=== PATIENT | female | born 1995 | race Caucasian/White ===

== ENCOUNTER 2019-11-13 17:31 | Emergency (ER) | payer BC, SELFPAY ==
[2019-11-13 17:56] VITALS: BP 124/90; PULSE 111; RESP 14; TEMP 36.9; O2SAT 99; BMI 28.3
[2019-11-13 18:10] LABS: Apearance,Urine Clear (Clear); Color,Urine Yellow (Yellow)
[2019-11-13 18:11] LABS: PH,Urine 5.5 (5.0-8.5); Specific Gravity, Urine <= 1.005 (1.005-1.030)
[2019-11-13 18:12] LABS: Bilirubin,Urine Negative (Negative); Blood, Urine Negative (Negative); Glucose,Urine (UA) Negative (Negative); Ketones,Urine 15 (Negative); Protein,Urine Negative (Negative); Urobilinogen,Urine 0.2 EU/dl (0.2)
[2019-11-13 18:13] LABS: UTC Leukocyte Esterase,Urine Negative (Negative); UTC Nitrate,Urine Negative (Negative)
[2019-11-13 18:21] VITALS: BP 139/92; PULSE 112; RESP 16; TEMP 36.9; O2SAT 100; BMI 28.3
[2019-11-13 18:36] LABS: Basophils % 0.3 % (0.1-2.0); Eosinophils # 0.1 K/mm3 (0.0-0.4); Eosinophils % 1.2 % (0.1-12.0); Hematocrit 38.2 % (37.0-47.0); Hemoglobin 13.5 g/dL (12.2-16.2); Lymphocytes # 2.7 K/mm3 (0.7-4.5); Lymphocytes % 27.1 % (10-50); Mean Corpuscular HGB Conc 35.3 g/dL (31.8-35.4); Mean Corpuscular Hemoglobin 34.2 pg (27.0-31.2); Mean Corpuscular Volume 96.9 fl (81-99); Mean Platelet Volume 7.1 fl (7.4-10.4); Monocytes # 0.5 K/mm3 (0.1-1.0); Monocytes % 4.6 % (1.7-9.3); Neutrophils # 6.7 K/mm3 (1.8-7.8); Neutrophils % 66.8 % (37.0-80.0); Platelet Count 255 K/mm3 (142-424); Red Blood Count 3.94 M/mm3 (4.20-5.40); Red Cell Distribution Width 12.4 % (11.5-17.5); White Blood Count 10.1 K/mm3 (4.8-10.8)
[2019-11-13 18:38] LABS: Chloride 102 mmol/L (98-107); Potassium 4.3 mmoL/L (3.5-5.1); Sodium 138 mmol/L (136-145)
[2019-11-13 18:38] LABS: Microscopic, Urine URINE MICROSCOPIC (MICROSCOPIC)
[2019-11-13 18:40] LABS: Alanine Aminotransferase 19 U/L (12-78); Aspartate Amino Transferase 27 U/L (14-36); Blood Urea Nitrogen 14 mg/dl (7-17); Creatinine Clearance Estimated 123 mL/min (50-200); Estimated Glomerular Filt Rate 87 ml/min (>60); GFR (African American) 106 ML/MIN (>60)
[2019-11-13 18:41] LABS: Albumin Level 4.4 g/dl (3.5-5.0); Albumin/Globulin Ratio 1.3 (1.1-1.8); Alkaline Phosphatase 63 U/L (38-126); Anion Gap 15.3 mEq/L (5-15); Bilirubin,Total 0.3 mg/dl (0.2-1.3); Calcium 9.8 mg/dl (8.4-10.2); Carbon Dioxide 25 mmol/L (22.0-30.0); Globulin 3.3 g/dL (1.3-3.2); Glucose 79 mg/dl (74-100); Total Protein,Serum 7.7 g/dl (6.3-8.2)
--- NOTE | 2019-11-13 18:52 | HMH.EDGENADL ---
ED Disposition Clinical Impression: Chronic abdominal pain Disposition: Home, Self-Care Condition on Discharge: Good Instructions: DI for Abdominal Pain-Adult Additional Instructions: Follow-up with your primary care provider for further evaluation. Referrals: Lucy Rayo MD [Primary Care Provider] - - Critical Care Critical Care Time: No Attestation: On 11/13/19, the high probability of a clinically significant, sudden or life threatening deterioration of the following system(s) required my full and direct attention, intervention and personal management. The time I documented below is in addition to time spent performing reported procedures but includes the following listed in this critical care notation. Medical Decision Making - Jose Roberto Inquiry Pt receiving controlled substance: No Vital Signs: 11/13/19 17:56 11/13/19 18:21 Temperature 98.4 F 98.4 F Temperature Source Oral Oral Pulse Rate [Right Brachial] 111 H 112 H Respiratory Rate 14 16 Blood Pressure [Right Arm] 124/90 139/92 H Blood Pressure Mean [Right Arm] 101 107 Blood Pressure Source [Right Arm] Automatic Cuff Automatic Cuff Blood Pressure Position [Right Arm] Sitting Sitting 02 Sat by Pulse Oximetry 99 100 Oxygen Delivery Method Room Air Room Air - Lab Data Lab Results 11/13/19 17:50: Urine Color Yellow, Urine Appearance Clear, Urine pH 6.0, Ur Specific [place] <= 1.005, Urine Protein Negative, Urine Glucose (UA) Negative, Urine Ketones Trace, Urine Blood Negative, Urine Nitrate Negative, Urine Bilirubin Negative, Urine Urobilinogen 0.2, Ur Leukocyte Esterase Negative 11/13/19 17:50: Urine HCG, Qual Negative 11/13/19 18:09: Urine Color Yellow, Urine Appearance Clear, Urine pH 5.5, Ur Specific [place] <= 1.005, Urine Protein Negative, Urine Glucose (UA) Negative, Urine Ketones 15, Urine Blood Negative, Urine Nitrate Negative, Urine Bilirubin Negative, Urine Urobilinogen 0.2, Ur Leukocyte Esterase Negative 11/13/19 18:25: WBC 10.1, RBC 3.94 L, Hgb 13.5, Hct 38.2, MCV 96.9, MCH 34.2 H, MCHC 35.3, RDW 12.4, Plt Count 255, MPV 7.1 L, Neut % (Auto) 66.8, Lymph % (Auto) 27.1, [place] % (Auto) 4.6, Eos % (Auto) 1.2, Baso % (Auto) 0.3, Neut # (Auto) 6.7, Lymph # (Auto) 2.7, [place] # (Auto) 0.5, Eos # (Auto) 0.1, Baso # (Auto) 0.0 11/13/19 18:25: Sodium 138, Potassium 4.3, Chloride 102, Carbon Dioxide 25, Anion Gap 15.3 H, BUN 14, Creatinine 0.80, Estimated Creat Clear 123, Estimated GFR 87, Est GFR ( Amer) 106, Glucose 79, Calcium 9.8, Total Bilirubin 0.3, AST 27, ALT 19, Alkaline Phosphatase 63, Total Protein 7.7, Albumin 4.4, Globulin 3.3 H, Albumin/Globulin Ratio 1.3 11/13/19 18:29: Tst Clinic Cancelled Result diagrams: 11/13/19 18:25 11/13/19 18:25 Orders (Tests/Meds): ED MEDICATIONS Discontinued Medications Generic Name Dose Route Start Last Admin Trade Name Pattie PRN Reason Stop Dose Admin Ioversol 75 ml 11/13/19 19:19 11/13/19 19:20 Rad-Optiray 350 100ml Vial IV 11/13/19 19:20 75 ml ONCE ONE Administration Protocol Sodium Chloride 10 ml 11/13/19 19:19 11/13/19 19:20 Rad-Saline Flush 10ml Syringe IV 11/13/19 19:20 10 ml ONCE ONE Administration ORDERS Category Date Time Status CT abdomen pelvis w con Stat Cat Scan 11/13/19 18:52 Taken Urinalysis and Microscopic Stat Lab 11/13/19 17:50 Results Urine Culture Routine Micro 11/13/19 17:50 Received - CT Data CT Scan: Abdomen, Pelvis Time Received: 19:35 ([facility] fax) ED CT Reviewed: Yes: I have viewed the radiologist's interpretation Findings Narrative: No acute findings General Adult HPI - General Chief complaint: PAIN Stated complaint: Pain R side for 1 mo Time Seen by Provider: 11/13/19 18:44 Mode of Arrival: Ambulatory Limitations: No Limitations Description of Symptoms (Recalled from ER Triage Doc. by RN): Pt reports R lower pelvic pain that has been intermittent since February of last year. Pt reports pain has been con
--- NOTE | 2019-11-13 18:52 | CT_ITS ---
PROCEDURE: CT ABDOMEN PELVIS W CON CLINICAL INDICATION: RLQ pain Persistent right lower quadrant pain COMPARISON: No exams were available for comparison TECHNIQUE: IV Contrast: 75ML OPTIRAY 350 Oral Contrast None Axial images obtained with sagittal and coronal reformats. All CT scans at the facility use one or more dose reduction, viz: automated exposure control, ma/kV adjustment per patient size (including targeted exams where dose is matched to indication, i.e. head), or iterative reconstruction technique. FINDINGS: LOWER THORAX: No acute finding ABDOMEN & PELVIS: The liver, spleen, adrenal glands, pancreas, gallbladder, and kidneys have an unremarkable appearance. No intestinal obstruction or free air. No evidence of appendicitis or diverticulitis. No pelvic mass or abnormal fluid collection. No acute bony findings. Few small inguinal lymph nodes. IMPRESSION: No acute finding Dictated by: Rogelio Waddell MD 11/14/2019 06:12 Rogelio Waddell MD in [place] 11/14/2019 06:12
[2019-11-13 19:00] LABS: Appearance,Urine CLEAR (Clear); Bilirubin,Urine Negative (Negative); Blood, Urine Negative (Negative); Color,Urine YELLOW (Yellow); Glucose,Urine (UA) Negative (Negative); Ketones,Urine TRACE (Negative); Leukocyte Esterase,Urine Negative (Negative); Nitrate,Urine Negative (Negative); Protein,Urine Negative (Negative); Specific Gravity, Urine <= 1.005 (1.005-1.030); Urobilinogen,Urine 0.2 EU/dl (0.2)
--- NOTE | 2019-11-13 19:10 | PC.NURSE ---
pt gone to ct at this time
[2019-11-13 19:27] LABS: Urine Pregnancy, HCG Qual. Negative (Negative)
[2019-11-13 19:38] LABS: WBC,Urine Occasional #/hpf (0-3)
[2019-11-13 19:39] LABS: Bacteria,Urine Trace /lpf
[2019-11-13 19:48] VITALS: BP 139/92; PULSE 112; RESP 16; TEMP 36.9; O2SAT 100
== END 2019-11-13 19:50 | disposition home or self-care (01) ==
LOC: UTC 17:45 → ER 18:20
PROVIDERS: Nurse Practitioner Family; Emergency Provider Emergency Medicine; PCP Internal Medicine
DX: R10.31 Right lower quadrant pain (principal); R10.2 Pelvic and perineal pain; F41.8 Other specified anxiety disorders; G43.709 Chronic migraine without aura, not intractable, without status migrainosus; F12.10 Cannabis abuse, uncomplicated; Z79.899 Other long term (current) drug therapy
CPT/HCPCS: 74177; 80053; 81001; 81003; 81025; 85025; 87086; 99283; Q9967

== ENCOUNTER → 2019-11-23 10:13 | Outpatient (CLI) | payer BC, SELFPAY ==
[2019-11-23 10:30] LABS: Basophils % 0.3 % (0.1-2.0); Eosinophils # 0.1 K/mm3 (0.0-0.4); Eosinophils % 1.3 % (0.1-12.0); Hematocrit 39.6 % (37.0-47.0); Hemoglobin 13.6 g/dL (12.2-16.2); Lymphocytes # 1.5 K/mm3 (0.7-4.5); Lymphocytes % 16.4 % (10-50); Mean Corpuscular HGB Conc 34.4 g/dL (31.8-35.4); Mean Corpuscular Hemoglobin 33.6 pg (27.0-31.2); Mean Corpuscular Volume 97.8 fl (81-99); Mean Platelet Volume 7.3 fl (7.4-10.4); Monocytes # 0.5 K/mm3 (0.1-1.0); Monocytes % 5.4 % (1.7-9.3); Neutrophils # 7.1 K/mm3 (1.8-7.8); Neutrophils % 76.6 % (37.0-80.0); Platelet Count 292 K/mm3 (142-424); Red Blood Count 4.05 M/mm3 (4.20-5.40); Red Cell Distribution Width 12.4 % (11.5-17.5); White Blood Count 9.3 K/mm3 (4.8-10.8)
[2019-11-23 12:11] LABS: Chloride 105 mmol/L (98-107); Sodium 139 mmol/L (136-145)
[2019-11-23 12:12] LABS: Potassium 4.3 mmoL/L (3.5-5.1)
[2019-11-23 12:14] LABS: Alanine Aminotransferase 18 U/L (12-78); Alkaline Phosphatase 74 U/L (38-126); Amylase 333 U/L (30-110); Anion Gap 14.3 mEq/L (5-15); Aspartate Amino Transferase 27 U/L (14-36); Bilirubin,Total 0.4 mg/dl (0.2-1.3); Blood Urea Nitrogen 10 mg/dl (7-17); Calcium 9.7 mg/dl (8.4-10.2); Carbon Dioxide 24 mmol/L (22.0-30.0); Estimated Glomerular Filt Rate 87 ml/min (>60); GFR (African American) 106 ML/MIN (>60); Glucose 82 mg/dl (74-100)
[2019-11-23 12:15] LABS: Albumin Level 4.1 g/dl (3.5-5.0); Albumin/Globulin Ratio 1.4 (1.1-1.8); Total Protein,Serum 7.1 g/dl (6.3-8.2)
[2019-11-23 12:45] LABS: Lipase 892 U/L (23-300)
== END ==
PROVIDERS: Visit Provider Nurse Practitioner Family
DX: R10.12 Left upper quadrant pain (principal)
CPT/HCPCS: 36415; 80053; 82150; 83690; 85025

== ENCOUNTER → 2019-11-28 09:31 | Outpatient (CLI) | payer BC, SELFPAY ==
--- NOTE | 2019-11-28 09:34 | US_ITS ---
PROCEDURE: US ABDOMEN COMPLETE CLINICAL INDICATION: ACUTE PANCREATITIS, COMPLICATION STATUS, LUQ ABD PAIN,NAUSEA COMPARISON: CT CT ABDOMEN PELVIS W CON from 11/13/2019 FINDINGS: PANCREAS: Unremarkable. No obvious mass or abnormal fluid collection. No ductal dilatation LIVER: No focal liver lesions demonstrated. Homogeneous echogenicity. No intrahepatic biliary ductal dilatation evident. There is appropriate direction of blood flow within a non dilated portal vein RIGHT KIDNEY: Unremarkable. Normal size and echogenicity. No hydronephrosis LEFT KIDNEY: Unremarkable. Normal size and echogenicity. No hydronephrosis GALLBLADDER: No gallstones, gallbladder wall thickening, pericholecystic fluid, or biliary dilatation. AORTA: No evidence of aneurysmal dilatation. SPLEEN: Unremarkable. Normal size and echogenicity ASCITES: None demonstrated. IMPRESSION: Unremarkable abdominal ultrasound Dictated by: Rogelio Waddell MD 11/28/2019 16:07 Rogelio Waddell MD in [place] 11/28/2019 16:07
== END ==
PROVIDERS: PCP Internal Medicine; Visit Provider Nurse Practitioner Family
DX: K85.90 Acute pancreatitis without necrosis or infection, unspecified (principal); R10.12 Left upper quadrant pain; R11.0 Nausea
CPT/HCPCS: 76700

== ENCOUNTER 2020-02-22 17:42 | Emergency (ER) | payer BC, SELFPAY ==
[2020-02-22 17:48] VITALS: BP 122/69; PULSE 96; RESP 18; O2SAT 100; BMI 26.5
--- NOTE | 2020-02-22 17:59 | HMH.EDUTC ---
[facility] [place] Clinical Impression: Left arm cellulitis Disposition: Home, Self-Care Condition on Discharge: Good Instructions: Cellulitis Additional Instructions: Apply warm wet compresses to the affected sites three or four times per day for 15 minutes as tolerated. Take the antibiotics as directed. Follow up with your regular doctor. GO TO THE ER FOR ANY WORSENING SYMPTOMS OR CONCERNS Prescriptions: Sulfamethoxazole/Trimethoprim [Bactrim DS tablet] 1 each PO BID 10 Days #20 tab Transmission Status: Received by [facility] Mupirocin [Bactroban 2% Ointment 22gm tube] 1 applicatio TP TID 7 Days #1 tube Transmission Status: Received by [facility] Referrals: Adrian Hedrick MD [Primary Care Provider] - Time of Disposition: 18:03 Medical Decision Making - Medical Records Medical records reviewed: No: I reviewed the patient's medical records. - Jose Roberto Inquiry Pt receiving controlled substance: No Vital Signs: 02/22/20 17:48 02/22/20 18:11 Temperature 98.1 F Temperature Source Oral Pulse Rate 96 H Pulse Rate [Radial] 96 H Respiratory Rate 18 18 Blood Pressure 122/69 Blood Pressure [Right Arm] 122/69 Blood Pressure Mean [Right Arm] 86 Blood Pressure Source Automatic Cuff Blood Pressure Source [Right Arm] Automatic Cuff Blood Pressure Position Sitting Blood Pressure Position [Right Arm] Sitting 02 Sat by Pulse Oximetry 100 Oxygen Delivery Method Room Air Room Air [facility] [place] HPI - General Stated complaint: bump on left forearm Time Seen by Provider: 02/22/20 17:59 Mode of Arrival: Ambulatory Source of Information: Patient Limitations: No Limitations Description of Symptoms (Recalled from Triage Doc. by RN): bump on left forearm/wrist since tuesday Symptoms (Recalled from RN notes): No Resp Symptoms (Recalled from RN notes): No Skin Symptoms (Recalled from RN notes): Yes MS Symptoms (Recalled from RN notes): No Functional Status (Recalled from RN notes): wnl - History of Present Illness Provider Complaint: She states that she has a knot on her left forearm. This has been present for the past 4 days approx. She denies any known injury. - Related Data Home Medications Medication Instructions Recorded Confirmed Amitriptyline HCl 75 mg PO DAILY 11/13/19 11/13/19 norgestimate-ethinyl estradioL 1 tab PO DAILY 11/13/19 11/13/19 [Tri-Sprintec Tablet] Previous Rx's Medication Instructions Recorded Mupirocin [Bactroban 2% Ointment 1 applicatio TP TID 7 Days #1 tube 02/22/20 22gm tube] Sulfamethoxazole/Trimethoprim 1 each PO BID 10 Days #20 tab 02/22/20 [Bactrim DS tablet] Allergies Allergy/AdvReac Type Severity Reaction Status Date / Time amoxicillin Allergy Verified 11/13/19 18:07 Penicillins Allergy Verified 11/13/19 18:07 - Worker's Comp Is this a Worker's Comp case?: No [facility] [place] History - Hepatitis A Screen Drug use history?: No High risk sexual behaviors?: No History of sexually transmitted infection?: No Currently employed?: No Childcare worker?: No Do you have indoor plumbing?: Yes Do you have electricity?: Yes Attestation statement:: This patient has been screened for Hepatitis A risk factors. I have reviewed the patient's past medical history: Yes - Social History Alcohol Intake: never Substance Use Type: marijuana Occupational Status: employed ROS Obtained: Yes All systems reviewed & no additional complaints - Constitutional Constitutional: Denies chills, Denies fever(s) - Integumentary/Breasts Skin/Breast: Reports as per HPI Physical Exam - General General appearance: alert, in no apparent distress - Head Head exam: atraumatic, normocephalic, normal inspection - Eye Eye exam: Present: normal appearance, PERRL, EOMI - ENT ENT exam: Present: normal exam, normal oropharynx, mucous membranes moist, TM's normal bilaterally, normal external ear exam - Neck Neck exam: Present: nor
[2020-02-22 18:11] VITALS: BP 122/69; PULSE 96; RESP 18; TEMP 36.7; O2SAT 100
== END 2020-02-22 18:13 | disposition home or self-care (01) ==
PROVIDERS: Emergency Provider Nurse Practitioner Family; PCP Family Medicine
DX: L03.114 Cellulitis of left upper limb (principal); Z88.0 Allergy status to penicillin
CPT/HCPCS: 99201

== ENCOUNTER 2020-02-25 17:51 | Emergency (ER) | payer BC, SELFPAY ==
[2020-02-25 18:45] VITALS: BP 127/77; PULSE 86; RESP 158; TEMP 36.8; O2SAT 98; BMI 26.5
--- NOTE | 2020-02-25 18:58 | HMH.EDUTC ---
[facility] [place]ression: Abs[place] Disposition: Home, Self-Care Condition on Discharge: Good Instructions: Cephalexin, DI for Skin Abscess Additional Instructions: *Continue Bactrim and start new antibiotic also be sure to take as ordered for the FULL length of time although you may be feeling better or start to see improvement in the next 24-48 hours *Monitor closely. Outlined redness so that you can monitor easier. Follow up immediately for new or worsening symptoms including but not limited to redness, swelling, streaking from site fever or chills. *Warm compress 15 minutes 3-4 times day *Never squeeze or pop these on your own. Seek immediate medical attention next time this occurs *Monitor Temp. Tylenol every 4 hours as needed and ibuprofen every 6 hours as needed (as long as your primary care doctor has told you that it is ok to take both. For fever, aches, pain. ER if no less that 101 despite Tylenol and ibuprofen Follow up with your family doctor/primary care physician in the next 48-72 hours if no improvement Continue to use Mupiricin on area as advised Follow up with your Family Doctor in the next 48 hours for your wound culture results Straight to ER if any life threatening symptoms Prescriptions: clindamycin HCL [Cleocin HCl] 300 mg PO Q8H 7 Days #21 cap Prescription Printed Referrals: Adrian Hedrick MD [Primary Care Provider] - As needed Time of Disposition: 19:16 Medical Decision Making - Jose Roberto Inquiry Pt receiving controlled substance: No Jose Roberto was queried for this patient: No Vital Signs: 02/25/20 18:45 02/25/20 19:11 Temperature 98.2 F 98.2 F Temperature Source Oral Pulse Rate 86 Pulse Rate [Right] 86 Respiratory Rate 158 H 18 Blood Pressure 127/77 Blood Pressure [Right Arm] 127/77 Blood Pressure Mean [Right Arm] 93 Blood Pressure Source [Right Arm] Automatic Cuff Blood Pressure Position [Right Arm] Sitting 02 Sat by Pulse Oximetry 98 Oxygen Delivery Method Room Air Orders (Tests/Meds): ORDERS Category Date Time Status Wound Culture and Gram Stain Stat Micro 02/25/20 19:17 Ordered [facility] [place] - General Stated complaint: Bump on l wrist Time Seen by Provider: 02/25/20 18:58 Mode of Arrival: Ambulatory Source of Information: Patient Limitations: No Limitations Description of Symptoms (Recalled from Triage Doc. by RN): Bump on left forearm HEENT Symptoms (Recalled from RN notes): No Resp Symptoms (Recalled from RN notes): No Skin Symptoms (Recalled from RN notes): Yes MS Symptoms (Recalled from RN notes): No Functional Status (Recalled from RN notes): wnl - History of Present Illness Provider Complaint: Patient states that she was seen a few days ago for cellulitis on her left wrist State that since then she has had swelling and warmth and looks like she may have an abscess States that she has a tattoo there and has been trying to mash it but nothing has come out so she came back in when it started having some redness surrounding it - Related Data Home Medications Medication Instructions Recorded Confirmed Amitriptyline HCl 75 mg PO DAILY 11/13/19 11/13/19 norgestimate-ethinyl estradioL 1 tab PO DAILY 11/13/19 11/13/19 [Tri-Sprintec Tablet] Previous Rx's Medication Instructions Recorded Mupirocin [Bactroban 2% Ointment 1 applicatio TP TID 7 Days #1 tube 02/22/20 22gm tube] Sulfamethoxazole/Trimethoprim 1 each PO BID 10 Days #20 tab 02/22/20 [Bactrim DS tablet] clindamycin HCL [Cleocin HCl] 300 mg PO Q8H 7 Days #21 cap 02/25/20 Allergies Allergy/AdvReac Type Severity Reaction Status Date / Time amoxicillin Allergy Verified 02/25/20 18:53 Penicillins Allergy Verified 02/25/20 18:53 - Worker's Comp Is this a Worker's Comp case?: No Is this an H Worker's Comp?: No Is this a [place] Worker's Comp?: No [facility] History - Hepatitis A Screen Drug use history?: No High risk sexual behaviors?: No History of sexually transmi
[2020-02-25 19:11] VITALS: BP 127/77; PULSE 86; RESP 18; TEMP 36.8; O2SAT 98
== END 2020-02-25 19:36 | disposition home or self-care (01) ==
PROVIDERS: Emergency Provider Nurse Practitioner; PCP Family Medicine
DX: L03.114 Cellulitis of left upper limb (principal); Z88.0 Allergy status to penicillin
CPT/HCPCS: 10060; 87070; 87077; 87186; 87205; 99201

== ENCOUNTER 2020-04-22 10:50 | Emergency (ER) | payer BC, SELFPAY ==
[2020-04-22 11:00] VITALS: BP 114/62; PULSE 96; RESP 21; TEMP 36.9; O2SAT 100; BMI 27.4
--- NOTE | 2020-04-22 11:14 | HMH.EDUTC ---
[facility] [place] Disposition Clinical Impression: Inner ear inflammation Qualifiers: Laterality: unspecified laterality Qualified Code(s): H83.09 - Labyrinthitis, unspecified ear Otitis media Qualifiers: Otitis media type: unspecified Laterality: left Qualified Code(s): H66.92 - Otitis media, unspecified, left ear Disposition: Home, Self-Care Condition on Discharge: Good Instructions: Vertigo, Middle Ear Infection, Meclizine Additional Instructions: *Monitor Temp, Over the counter Motrin or Tylenol as directed/as needed Tylenol every 4 hours and Motrin every 6 hours (as long as your family doctor has told you that you can take it) for fever or pain. and straight to ER if unable to lower temp less than 101.0 after medication given *Warm salt water gargles may help to soothe the throat *Throat Lozenges *Warm fluids like tea with honey may help to soothe the throat *Sleep elevated *Humidifier/Vaporizer *Flonase 2 sprays in each nostril daily but be aware that it may take 2-3 days before you notice improvement Take medication as prescribed Follow up with your Family Doctor if no improvement or any worsening of symptoms Follow up IMMEDIATELY for new or worsening symptoms or no Noticeable improvement over the next 48-72 hours. 911 for difficulty breathing or swallowing Prescriptions: Meclizine HCl 12.5 mg PO BID PRN #10 tab PRN Reason: Dizziness Transmission Status: Received by [facility] Azithromycin [Z-Alireza 250mg Tab] 250 mg PO DIRECTED #6 tab Transmission Status: Received by [facility] Referrals: Adrian Hedrick MD [Primary Care Provider] - As needed Forms: Work/School Release Time of Disposition: 11:44 Medical Decision Making - Jose Roberto Inquiry Pt receiving controlled substance: No Jose Roberto was queried for this patient: No Vital Signs: 04/22/20 11:00 04/22/20 11:42 Temperature 98.4 F 98.4 F Temperature Source Oral Pulse Rate 96 H Pulse Rate [Right Brachial] 96 H Respiratory Rate 21 21 Blood Pressure 114/62 Blood Pressure [Right Arm] 114/62 Blood Pressure Mean [Right Arm] 79 Blood Pressure Source [Right Arm] Automatic Cuff Blood Pressure Position [Right Arm] Sitting 02 Sat by Pulse Oximetry 100 Oxygen Delivery Method Room Air - Lab Data Lab results reviewed: Yes: I reviewed the patient's lab results. Orders (Tests/Meds): ED MEDICATIONS Discontinued Medications Generic Name Dose Route Start Last Admin Trade Name Pattie PRArmando Reason Stop Dose Admin Meclizine HCl 12.5 mg 04/22/20 11:21 04/22/20 11:32 Meclizine 25mg Tablet PO 04/22/20 11:22 12.5 mg ONCE ONE Administration Medical Decision Narrative: Reports currently having her monthly menstrual period, Medication discussed with pharmacy Patient state that medication helped no longer feeling dizzy or having nausea Discussed that patient could be transferred to ED for further work up and evaluation and patient declined States that if medication stopped working she would follow up with her PCP or return immediately to the Ed [facility] [place] HPI - General Stated complaint: dizzy Time Seen by Provider: 04/22/20 11:15 Mode of Arrival: Ambulatory Source of Information: Patient Limitations: No Limitations Description of Symptoms (Recalled from Triage Doc. by RN): PATIENT C/O SHAKY AND WOOZY OVER THE WEEKEND, LIGHT HEADED SINCE YESTERDAY. ALSO C/O N/V/D THAT LAST APPROX 1 DAY HEENT Symptoms (Recalled from RN notes): No Resp Symptoms (Recalled from RN notes): No Skin Symptoms (Recalled from RN notes): No MS Symptoms (Recalled from RN notes): No Functional Status (Recalled from RN notes): WNL - History of Present Illness Provider Complaint: Patient states that she felt woozy and nausea over the weekend State that her left ear has been bothering her on and off and felt dizzy when she would make certain movements States that also she had n/v/d yesterday which is better today but she is still having pressure like feelin
[2020-04-22 11:42] VITALS: BP 114/62; PULSE 96; RESP 21; TEMP 36.9; O2SAT 100
== END 2020-04-22 11:47 | disposition home or self-care (01) ==
PROVIDERS: Emergency Provider Nurse Practitioner; PCP Family Medicine
DX: H83.09 Labyrinthitis, unspecified ear (principal); H66.92 Otitis media, unspecified, left ear; Z88.0 Allergy status to penicillin
CPT/HCPCS: 99202; G0463

== ENCOUNTER 2020-11-19 09:57 | Emergency (ER) | payer BC, SELFPAY ==
[2020-11-19 11:22] VITALS: BP 141/70; PULSE 68; RESP 18; TEMP 36.8; O2SAT 99; BMI 24.9
--- NOTE | 2020-11-19 12:07 | HMH.EDUTC ---
[facility] [place]ression: Strep [place] Disposition: Home, Self-Care Condition on Discharge: Good Additional Instructions: Drink plenty of fluids. Take tylenol or ibuprofen for pain or fever. Take the medications as directed. Follow up with your regular doctor. GO TO THE ER FOR ANY WORSENING SYMPTOMS Throw your tooth brush away and get a new one. Prescriptions: Brompheniramine/Pseudoephed/Dm [Bromfed Dm Cough Syrup] 5 ml PO Q6HP PRN #240 ml PRN Reason: Cough Transmission Status: Received by [facility] Promethazine HCl [Phenergan 25mg tab] 25 mg PO Q6H PRN #12 tab PRN Reason: Nausea And Vomiting Transmission Status: Received by [facility] Azithromycin [Z-Alireza 250mg Tab*] 250 mg PO UD DOSE PK #6 tab Transmission Status: Received by [facility] Referrals: Adrian Hedrick MD [Primary Care Provider] - Forms: Work/School Release Time of Disposition: 12:25 Medical Decision Making - Medical Records Medical records reviewed: No: I reviewed the patient's medical records. - Jose Roberto Inquiry Pt receiving controlled substance: No Vital Signs: 11/19/20 11:22 11/19/20 12:26 Temperature 98.2 F 98.2 F Temperature Source Oral Pulse Rate 68 Pulse Rate [Left] 68 Respiratory Rate 18 18 Blood Pressure 141/70 H Blood Pressure [Right Arm] 141/70 H Blood Pressure Mean [Right Arm] 93 02 Sat by Pulse Oximetry 99 Oxygen Delivery Method Room Air - Lab Data Lab results reviewed: Yes: I reviewed the patient's lab results. Lab Results 11/19/20 11:58: Urine Color Yellow, Urine Appearance Clear, Urine pH 6.5, Ur Specific [place] 1.025, Urine Protein Negative, Urine Glucose (UA) Negative, Urine Ketones Negative, Urine Blood Negative, Urine Nitrate Negative, Urine Bilirubin Negative, Urine Urobilinogen 0.2, Ur Leukocyte Esterase Negative 11/19/20 12:23: Strep Scn Rapid [facility] Positive [facility] [place] - General Stated complaint: vomit, diar,head, hermelinda,abd pain, Time Seen by Provider: 11/19/20 12:07 Mode of Arrival: Ambulatory Source of Information: Patient Limitations: No Limitations Description of Symptoms (Recalled from Triage Doc. by RN): PT C/O ABD PAIN, N/V, DIZZINESS, BUSTAMANTE, AND EAR PAIN X4 DAYS. HEENT Symptoms (Recalled from RN notes): Yes ([place]ANTE AND EAR ACHES) Resp Symptoms (Recalled from RN notes): No Skin Symptoms (Recalled from RN notes): No MS Symptoms (Recalled from RN notes): No Functional Status (Recalled from RN notes): NA - History of Present Illness Provider Complaint: She c/o abdominal pain that has occured on and off for the past 1 week approx. She has had nausea and diarrhea also. She has not vomited. She denies any fever/chills. She denies any known exposure to covid-19. She works in [employer] and says she is only around 1 other person very often and he has not been sick at all. She had similar symptoms around 1 year ago and she was diagnosed with pancreatitis then. She denies that any cause was discovered then for her pancreatitis. - Related Data Home Medications Medication Instructions Recorded Confirmed Amitriptyline HCl 75 mg PO DAILY 11/13/19 11/13/19 norgestimate-ethinyl estradioL 1 tab PO DAILY 11/13/19 11/13/19 [Tri-Sprintec Tablet] Previous Rx's Medication Instructions Recorded Mupirocin [Bactroban 2% Ointment 1 applicatio TP TID 7 Days #1 tube 02/22/20 22gm tube] Sulfamethoxazole/Trimethoprim 1 each PO BID 10 Days #20 tab 02/22/20 [Bactrim DS tablet] clindamycin HCL [Cleocin HCl] 300 mg PO Q8H 7 Days #21 cap 02/25/20 Azithromycin [Z-Alireza 250mg Tab] 250 mg PO DIRECTED #6 tab 04/22/20 Meclizine HCl 12.5 mg PO BID PRN #10 tab 04/22/20 Azithromycin [Z-Alireza 250mg Tab*] 250 mg PO UD DOSE PK #6 tab 11/19/20 Brompheniramine/Pseudoephed/Dm 5 ml PO Q6HP PRN #240 ml 11/19/20 [Bromfed Dm Cough Syrup] Promethazine HCl [Phenergan 25mg 25 mg PO Q6H PRN #12 tab 11/19/20 tab] Allergies Allergy/A
[2020-11-19 12:24] LABS: UTC Strep Screen (Rapid) Positive (Negative)
[2020-11-19 12:24] LABS: Apearance,Urine Clear (Clear); Bilirubin,Urine Negative (Negative); Blood, Urine Negative (Negative); Color,Urine Yellow (Yellow); Glucose,Urine (UA) Negative (Negative); Ketones,Urine Negative (Negative); PH,Urine 6.5 (5.0-8.5); Protein,Urine Negative (Negative); Specific Gravity, Urine 1.025 (1.005-1.030); UTC Leukocyte Esterase,Urine Negative (Negative); UTC Nitrate,Urine Negative (Negative); Urobilinogen,Urine 0.2 EU/dl (0.2)
[2020-11-19 12:26] VITALS: BP 141/70; PULSE 68; RESP 18; TEMP 36.8
== END 2020-11-19 12:43 | disposition home or self-care (01) ==
PROVIDERS: Emergency Provider Nurse Practitioner Family; PCP Family Medicine
DX: J02.0 Streptococcal pharyngitis (principal); Z88.0 Allergy status to penicillin
CPT/HCPCS: 81003; 87880; 99203; G0463

== ENCOUNTER → 2021-04-14 19:48 | Outpatient (CLI) | payer BC, SELFPAY | PROVIDERS: Visit Provider Nurse Practitioner Family | DX: U07.1 COVID-19 (principal) | CPT/HCPCS: C9803; U0003; U0005 ==

== ENCOUNTER 2021-09-13 16:30 | Emergency (ER) | payer BC, SELFPAY ==
[2021-09-13 16:40] VITALS: BP 133/74; PULSE 86; RESP 18; TEMP 37.3; O2SAT 98; BMI 27.8
[2021-09-13 17:00] LABS: Strep Scrn Group A (Rapid) Positive (Negative)
--- NOTE | 2021-09-13 17:11 | HMH.EDUTC ---
[facility] – [place] Disposition Clinical Impression: Strep throat Disposition: Home, Self-Care Condition on Discharge: Good Instructions: Strep Throat, DI for Strep Throat, Methylprednisolone, Azithromycin Additional Instructions: *Monitor Temp, Over the counter Motrin or Tylenol as directed/as needed Tylenol every 4 hours and Motrin every 6 hours (as long as your family doctor has told you that you can take it) for fever or pain. and straight to ER if unable to lower temp less than 101.0 after medication given *Warm salt water gargles may help to soothe the throat *Throat Lozenges *Warm fluids like tea with honey may help to soothe the throat *Sleep elevated *Humidifier/Vaporizer *If you did not take Penicillin shot or was unable to, start taking antibiotic immediately and make sure that you take it for the FULL length of time although you should start to feel better in 24-48 hours *change toothbrush and toothpaste 24-48 hours after starting to take antibiotics so you do not reinfect yourself Monitor Temp. Tylenol and/or Ibuprofen as needed. ER if fever is no less than 101 despite alternating Tylenol and Ibuprofen * Encourage fluids, water, Gatorade, powerade, pedialyte if infant/toddler/or child *Cold fluids, popsicles and ice cream may feel good on his throat Follow up IMMEDIATELY for new or worsening symptoms or no Noticeable improvement over the next 48-72 hours. 911 for difficulty breathing or swallowing Prescriptions: methylPREDNISolone [Medrol 4mg tab] 4 mg PO DIRECTED #21 tab [id number] Azithromycin [Z-Alireza 250mg Tab] 250 mg PO DIRECTED #6 tab Transmission Status: [id number] Referrals: Brittani Garcia APRN [Primary Care Provider] - As needed Forms: Work/School Release Time of Disposition: 17:22 Medical Decision Making - Jose Roberto Inquiry Pt receiving controlled substance: No Jose Roberto was queried for this patient: No Vital Signs: 09/13/21 16:40 09/13/21 17:12 Temperature 99.1 F 99.1 F Temperature Source Oral Pulse Rate 86 Pulse Rate [Right Brachial] 86 Respiratory Rate 18 18 Blood Pressure 133/74 Blood Pressure [Right Arm] 133/74 Blood Pressure Mean [Right Arm] 93 Blood Pressure Source [Right Arm] Automatic Cuff Blood Pressure Position [Right Arm] Sitting 02 Sat by Pulse Oximetry 98 Oxygen Delivery Method Room Air - Lab Data Lab results reviewed: Yes: I reviewed the patient's lab results. Lab Results 09/13/21 14:40: Group A Strep Rapid Positive A [facility] [place] HPI - General Stated complaint: sore throat, ears Time Seen by Provider: 09/13/21 16:50 Mode of Arrival: Ambulatory Source of Information: Patient Limitations: No Limitations Description of Symptoms (Recalled from Triage Doc. by RN): PATIENT C/O SORE THROAT AND RIGHT EAR ACHE SINCE YESTERDAY HEENT Symptoms (Recalled from RN notes): Yes Resp Symptoms (Recalled from RN notes): No Skin Symptoms (Recalled from RN notes): No MS Symptoms (Recalled from RN notes): No Functional Status (Recalled from RN notes): WNL - History of Present Illness Provider Complaint: Patient states that she has been having sore throat and pain in her right ear since States that it has continued to get worse States that it hurts when she swallows or talks States that she cant tell if it is her ear or throat and feels like strep throat - Related Data Home Medications Medication Instructions Recorded Confirmed omeprazole 20 mg capsule,delayed 20 mg PO DAILY cap 04/14/21 09/13/21 release Norelgestromin/Ethin.estradiol 1 each TD WEEKLY 09/02/21 09/13/21 [Zafemy 150-35 Mcg/Day Patch] Previous Rx's Medication Instructions Recorded Azithromycin [Z-Alireza 250mg Tab] 250 mg PO DIRECTED #6 tab 09/13/21 methylPREDNISolone [Medrol 4mg 4 mg PO DIRECTED #21 tab 09/13/21 tab] Allergies Allergy/AdvReac Type Severity Reaction Status Date / Time amoxicillin Allergy
[2021-09-13 17:12] VITALS: BP 133/74; PULSE 86; RESP 18; TEMP 37.3; O2SAT 98
== END 2021-09-13 17:15 | disposition home or self-care (01) ==
PROVIDERS: Emergency Provider Nurse Practitioner; PCP Nurse Practitioner Family
DX: J02.0 Streptococcal pharyngitis (principal); Z88.0 Allergy status to penicillin; Z88.1 Allergy status to other antibiotic agents
CPT/HCPCS: 87430; 99212; G0463

== ENCOUNTER → 2021-09-16 18:42 | Outpatient (CLI) | payer BC, SELFPAY | PROVIDERS: PCP Nurse Practitioner Family; Visit Provider Nurse Practitioner | DX: Z11.1 Encounter for screening for respiratory tuberculosis (principal) | CPT/HCPCS: 86580 ==

== ENCOUNTER 2021-10-26 18:49 | Emergency (ER) | payer BC, SELFPAY ==
[2021-10-26 19:11] VITALS: BP 131/63; PULSE 105; RESP 16; TEMP 36.8; O2SAT 99; BMI 29.2
[2021-10-26 19:20] LABS: UTC Strep Screen (Rapid) Negative (Negative)
--- NOTE | 2021-10-26 19:40 | HMH.EDUTC ---
[facility] [place] Clinical Impression: Exposure to COVID-19 virus Sinusitis Qualifiers: Sinusitis location: unspecified location Chronicity: acute Recurrence: non-recurrent Qualified Code(s): J01.90 - Acute sinusitis, unspecified Otitis media Qualifiers: Otitis media type: suppurative Chronicity: acute Laterality: bilateral Recurrence: non-recurrent Spontaneous tympanic membrane rupture: without spontaneous rupture Qualified Code(s): H66.003 - Acute suppurative otitis media without spontaneous rupture of ear drum, bilateral Disposition: Home, Self-Care Condition on Discharge: Good Instructions: DI for Sinusitis Additional Instructions: Drink plenty of fluids. Take tylenol or ibuprofen for pain or fever. Take the medications as directed. Follow up with your regular doctor. GO TO THE ER FOR ANY WORSENING SYMPTOMS Quarantine until you know the results of your covid-19 test. Notify your school or workplace of your results and follow their instructions regarding return to work/school. Prescriptions: Brompheniramine/Pseudoephed/Dm [Bromfed Dm Cough Syrup] 5 ml PO Q6HP PRN #240 ml PRN Reason: Cough Transmission Status: Received by [id number] methylPREDNISolone [Medrol] 4 mg PO DIRECTED 6 Days #21 packet Transmission Status: Received by [id number] Azithromycin [Z-Alireza 250mg Tab*] 250 mg PO UD DOSE PK #6 tab Transmission Status: Received by [id number] Referrals: Brittani Garcia APRN [Primary Care Provider] - Forms: Work/School Release Time of Disposition: 19:45 Medical Decision Making - Medical Records Medical records reviewed: No: I reviewed the patient's medical records. - Jose Roberto Inquiry Pt receiving controlled substance: No Vital Signs: 10/26/21 19:11 10/26/21 19:54 Temperature 98.3 F 98.3 F Temperature Source Oral Pulse Rate 105 H Pulse Rate [Left] 105 H Respiratory Rate 16 16 Blood Pressure 131/63 Blood Pressure [Right Arm] 131/63 Blood Pressure Mean [Right Arm] 85 02 Sat by Pulse Oximetry 99 - Lab Data Lab Results 10/26/21 19:19: Strep Scn Rapid Clinic Negative Orders (Tests/Meds): ORDERS Category Date Time Status Strep Screen Confirmation Stat Micro 10/26/21 19:19 Received [facility] UTC HPI - General Stated complaint: Ear ache, sore throat, cough Time Seen by Provider: 10/26/21 19:40 Mode of Arrival: Ambulatory Source of Information: Patient Limitations: No Limitations Description of Symptoms (Recalled from Triage Doc. by RN): patient comes in with complaints of ear ache, sore throat, coughing. symptoms began yesterday HEENT Symptoms (Recalled from RN notes): Yes Resp Symptoms (Recalled from RN notes): Yes Skin Symptoms (Recalled from RN notes): No MS Symptoms (Recalled from RN notes): No Functional Status (Recalled from RN notes): n/a - History of Present Illness Provider Complaint: She is here with complaints of having sore throat, sinus congestion and malaise since yesterday. - Related Data Home Medications Medication Instructions Recorded Confirmed norethindrone-e.estradioL-iron 1 tab PO ONCE 10/26/21 10/26/21 [Junel Fe 24 Tablet] Previous Rx's Medication Instructions Recorded Azithromycin [Z-Alireza 250mg Tab*] 250 mg PO UD DOSE PK #6 tab 10/26/21 Brompheniramine/Pseudoephed/Dm 5 ml PO Q6HP PRN #240 ml 10/26/21 [Bromfed Dm Cough Syrup] methylPREDNISolone [Medrol] 4 mg PO DIRECTED 6 Days #21 10/26/21 packet Allergies Allergy/AdvReac Type Severity Reaction Status Date / Time amoxicillin Allergy Verified 10/26/21 19:15 Penicillins Allergy Verified 10/26/21 19:15 - Worker's Comp Is this a Worker's Comp case?: No [facility] History - Hepatitis A Screen Attestation statement:: This patient has been screened for Hepatitis A risk factors. I have reviewed the patient's past medical history: Yes Medical History: Reports:: Anxiety, Gastroesophageal Reflux Disease(GERD) Denies
[2021-10-26 19:54] VITALS: BP 131/63; PULSE 105; RESP 16; TEMP 36.8
== END 2021-10-26 19:55 | disposition home or self-care (01) ==
PROVIDERS: Nurse Practitioner Family; Emergency Provider Emergency Medicine; PCP Nurse Practitioner Family
DX: J01.90 Acute sinusitis, unspecified (principal); H66.003 Acute suppurative otitis media without spontaneous rupture of ear drum, bilateral; J02.9 Acute pharyngitis, unspecified; R53.81 Other malaise; Z20.822 Contact with and (suspected) exposure to COVID-19; K21.9 Gastro-esophageal reflux disease without esophagitis; F41.9 Anxiety disorder, unspecified; Z79.52 Long term (current) use of systemic steroids; Z79.899 Other long term (current) drug therapy; Z88.0 Allergy status to penicillin; Z88.1 Allergy status to other antibiotic agents; Z88.3 Allergy status to other anti-infective agents; Z82.49 Family history of ischemic heart disease and other diseases of the circulatory system; Z83.3 Family history of diabetes mellitus
CPT/HCPCS: 87880; 99213; C9803; G0463; U0003; U0005

== ENCOUNTER 2022-01-19 07:05 | Emergency (ER) | payer OTHER, SELFPAY ==
[2022-01-19] VITALS (7 sets, daily range): BP systolic 104–130; BP diastolic 68–92; PULSE 83–101; RESP 16–20; TEMP 36.9; O2SAT 98–100; BMI 25.7; BMI 22.6
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
[2022-01-19 07:24] LABS: Basophils # 0.1 K/mm3 (0-0.2); Basophils % 0.8 % (0.1-2.0); Eosinophils # 0.4 K/mm3 (0.0-0.4); Eosinophils % 4.1 % (0.1-12.0); Hematocrit 42.1 % (37.0-47.0); Hemoglobin 13.6 g/dL (12.2-16.2); Lymphocytes # 1.9 K/mm3 (0.7-4.5); Lymphocytes % 21.5 % (10-50); Mean Corpuscular HGB Conc 32.2 g/dL (31.8-35.4); Mean Corpuscular Volume 102.3 fl (81-99); Mean Platelet Volume 7.8 fl (7.4-10.4); Monocytes # 0.5 K/mm3 (0.1-1.0); Monocytes % 5.3 % (1.7-9.3); Neutrophils % 68.3 % (37.0-80.0); Platelet Count 307 K/mm3 (142-424); Red Blood Count 4.12 M/mm3 (4.20-5.40); Red Cell Distribution Width 12.5 % (11.5-17.5); White Blood Count 8.7 K/mm3 (4.8-10.8)
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
--- NOTE | 2022-01-19 07:32 | PC.NURSE ---
[id number] DR. BOOKER AT BEDSIDE FOR EVALUATION
--- NOTE | 2022-01-19 07:32 | PC.NURSE ---
[id number] FAMILY AT BEDSIDE
[2022-01-19 07:35] LABS: Blood Urea Nitrogen 13 mg/dl (7-17); Carbon Dioxide 26 mmol/L (22.0-30.0); Chloride 103 mmol/L (98-107); Creatinine Clearance Estimated 106 mL/min (50-200); Estimated Glomerular Filt Rate 86 ml/min (>60); GFR (African American) 104 ML/MIN (>60); Glucose 109 mg/dl (74-100); Sodium 139 mmol/L (136-145)
[2022-01-19 07:42] LABS: HCG Qualitative, Serum Negative (Negative)
--- NOTE | 2022-01-19 07:50 | PC.NURSE ---
PT TO CT AT THIS TIME
--- NOTE | 2022-01-19 07:51 | PC.NURSE ---
Radiology took pt for CT
--- NOTE | 2022-01-19 08:13 | PC.NURSE ---
PT RETURNED FROM CT AT THIS TIME
--- NOTE | 2022-01-19 08:28 | PC.NURSE ---
ROUNDED ON PT AT THIS TIME. DENIES NEEDS. CALL LIGHT WITHIN REACH
--- NOTE | 2022-01-19 08:31 | PC.NURSE ---
FAMILY AT BEDSIDE
--- NOTE | 2022-01-19 09:57 | PC.NURSE ---
notified pt rad results are in the computer
--- NOTE | 2022-01-19 10:03 | PC.NURSE ---
DR. BOOKER CALLED AT THIS TIME, PT MAY REMOVE C-COLLAR
--- NOTE | 2022-01-19 10:05 | PC.NURSE ---
per Dr. Berg: verbal order for Ketorlac 30 mg IV once pt will need to follow up with her primary MD, let pt know she will probably end up having to have an MRI and have spine follow up. Dr. Berg also stated he is going to send in a prescription for pain medication for pt.
== END 2022-01-19 10:32 | disposition home or self-care (01) ==
PROVIDERS: Emergency Provider Emergency Medicine
DX: S22.080A Wedge compression fracture of T11-T12 vertebra, initial encounter for closed fracture (principal); V89.2XXA Person injured in unspecified motor-vehicle accident, traffic, initial encounter; M54.50 Low back pain, unspecified; M53.3 Sacrococcygeal disorders, not elsewhere classified; M25.522 Pain in left elbow; Z88.0 Allergy status to penicillin; Z88.1 Allergy status to other antibiotic agents
CPT/HCPCS: 71045; 72125; 72128; 72131; 72170; 72220; 73080; 80048; 84703; 85025; 96374; 99285

== ENCOUNTER 2022-12-14 13:12 | Emergency (ER) | payer SELFPAY ==
[2022-12-14 13:45] VITALS: BP 126/78; PULSE 97; RESP 19; TEMP 37.8; O2SAT 99; BMI 26.7
[2022-12-14 14:05] LABS: UTC Strep Screen (Rapid) Positive (Negative)
--- NOTE | 2022-12-14 14:06 | EXP.UTC ---
Discharge Plan Disposition Patient Disposition: Home, Self-Care Condition: Good Prescriptions Prescriptions: New azithromycin [Zithromax Z-Alireza] 250 mg tablet See Rx Instructions .ROUTE .COMPLEX 5 Days Qty: 6 0RF Rx Instructions: For 250 mg dose pack: take 500 mg today (day 1), then 250 mg for 4 days (days 2-5) methylprednisolone [Medrol (Alireza)] 4 mg tablets,dose pack See Rx Instructions .Route .COMPLEX 6 Days Qty: 21 0RF Rx Instructions: taper pack; No Action norethindrone-e.estradiol-iron 1 EACH tablet 1 tab PO ONCE Referrals Follow up/Referrals: Semaj Doshi MD [Primary Care Provider] - See instructions Activity Restrictions/Add. Instructions Additional Instructions/Restrictions: *Monitor Temp, Over the counter Motrin or Tylenol as directed/as needed Tylenol every 4 hours and Motrin every 6 hours (as long as your family doctor has told you that you can take it) for fever or pain. and straight to ER if unable to lower temp less than 101.0 after medication given *Warm salt water gargles may help to soothe the throat *Throat Lozenges? *Warm fluids like tea with honey may help to soothe the throat? *Sleep elevated *Humidifier/Vaporizer *If you did not take Penicillin shot or was unable to, start taking antibiotic immediately and make sure that you take it for the FULL length of time although you should start to feel better in 24-48 hours *change toothbrush and toothpaste 24-48 hours after starting to take antibiotics so you do not reinfect yourself Monitor Temp. Tylenol and/or Ibuprofen as needed. ER if fever is no less than 101 despite alternating Tylenol and Ibuprofen * Encourage fluids, water, Gatorade, powerade, pedialyte if infant/toddler/or child *Cold fluids, popsicles and ice cream may feel good on his throat Follow up IMMEDIATELY for new or worsening symptoms or no Noticeable improvement over the next 48-72 hours. 911 for difficulty breathing or swallowing Clinical Impressions Clinical Impression: Strep throat Stand Alone Forms Stand Alone Forms: Work/School Release Instructions Patient Instructions: Strep Throat, DI for Strep Throat Discharge ED Provider: Delmis Engle [facility] [place] General Stated complaint: sore throat, white patches in throat, ear pain Mode of Arrival: Ambulatory Source of Information: Patient Limitations: No Limitations Time Seen by Provider: 12/14/22 14:06 Description of Symptoms (Recalled from Triage Doc. by RN): PATIENT C/O SORE THROAT, FEVER, EAR PAIN, CHILLS, BODY ACHES, HEADACHE, RUNNY NOSE, AND LOSS OF APPETITE HEENT Symptoms (Recalled from RN notes): Yes Resp Symptoms (Recalled from RN notes): No Skin Symptoms (Recalled from RN notes): No MS Symptoms (Recalled from RN notes): No Functional Status (Recalled from RN notes): WNL History of Present Illness Provider Complaint: Patient states that she hasnt felt well on and off since States that she has been having sore throat, fever, chills, headache and pain in her ears States that she got to feeling better but then it came back and her throat is all swollen up with white patches everywhere on her tonsils and she has a bad taste in her mouth Related Data Home Medications Medication Instructions Recorded Confirmed norethindrone 1 mg-ethinyl 1 tab PO ONCE control 10/26/21 12/14/22 estradiol 20 mcg (24)-iron 75 mg (4) tablet Previous Rx's Medication Instructions Recorded azithromycin 250 mg tablet See Rx Instructions PO .COMPLEX 5 12/14/22 (Zithromax Z-Alireza) days #6 tabs methylprednisolone 4 mg tablets in See Rx Instructions .Route 12/14/22 a dose pack (Medrol (Alireza)) .COMPLEX 6 days #21 tabs Allergies Allergy/AdvReac Type Severity Reaction Status Date / Time amoxicillin Allergy Verified 10/26/21 19:15 Penicillins Allergy Verified 10/26/21 19:15 Worker's Comp Is this a Worker's Comp case?: No [facility]
[2022-12-14 14:20] VITALS: BP 126/78; PULSE 97; RESP 19; TEMP 37.8; O2SAT 99
== END 2022-12-14 14:22 | disposition home or self-care (01) ==
PROVIDERS: Emergency Provider Nurse Practitioner; PCP Family Medicine
DX: J02.0 Streptococcal pharyngitis (principal); R50.9 Fever, unspecified
CPT/HCPCS: 87880; 96372; 99212; 99214; G0463

== ENCOUNTER 2024-01-20 10:06 | Outpatient (CLI) | payer BC, SELFPAY ==
--- NOTE | 2024-01-20 10:11 | US_ITS ---
PROCEDURE INFORMATION: Exam: US Left Breast, Complete Exam date and time: 01/20/2024 10:16 AM Age: 28 years old Clinical indication: Palpable lump in the left breast lower inner quadrant. TECHNIQUE: Imaging protocol: Complete ultrasound of all four quadrants of the left breast and the retroareolar regions, including ultrasound of the axilla when performed. COMPARISON: No relevant prior studies available. FINDINGS: ULTRASOUND: Breast ultrasound findings: Complete scanning of the left breast is performed, including of the palpable area of concern in the lower inner quadrant, 8 o'clock axis, 6 cm from the nipple. There is no underlying solid or cystic abnormality, area of architectural distortion, or acoustical shadowing. There is no axillary adenopathy. IMPRESSION: No sonographic evidence of malignancy. However, due to the patient's palpable breast concern, a diagnostic mammogram is recommended. (A skin marker should be placed over the area of palpable concern followed by a diagnostic unilateral mammogram with spot compression views for full evaluation of the patient's complaint of a palpable abnormality.) ASSESSMENT: BI-RADS Category 0: Incomplete- Need Additional Imaging Evaluation.
== END 2024-01-20 23:59 | disposition home or self-care (01) ==
PROVIDERS: PCP Nurse Practitioner; Visit Provider Nurse Practitioner
DX: N63.20 Unspecified lump in the left breast, unspecified quadrant (principal)
CPT/HCPCS: 76641

== ENCOUNTER 2024-02-10 14:09 | Outpatient (CLI) | payer BC, SELFPAY ==
--- NOTE | 2024-02-10 14:21 | MM_ITS ---
PROCEDURE INFORMATION: Exam: MG Left Diagnostic Breast Tomosynthesis Exam date and time: 02/10/2024 2:07 PM Age: 28 years old Clinical indication: Palpable lump in the left breast lower inner quadrant. Patient had a normal breast ultrasound on 01/20/2024. TECHNIQUE: Imaging protocol: Left Diagnostic tomosynthesis and 2D mammography including computer-aided detection (CAD) when performed. Unilateral or bilateral exam. COMPARISON: US BREAST LT COMPLETE 01/20/2024 10:16 AM FINDINGS: MAMMOGRAPHY: Breast composition: The breasts are heterogeneously dense, which may obscure small masses. Breast mammogram findings: A skin marker is placed at the site of palpable concern in the left breast lower inner quadrant. There is no underlying mammographic abnormality. There are no suspicious masses, calcifications, or areas of architectural distortion. No left-sided axillary adenopathy. IMPRESSION: No mammographic evidence of malignancy. Area of palpable concern in the left breast has no imaging correlate. Continued clinical monitoring is recommended, with repeat imaging if the palpable lump is persistent or worsens. Further evaluation of a palpable abnormality should be based on clinical grounds regardless of radiographic findings or lack thereof. ASSESSMENT: BI-RADS Category 1: Negative.
== END 2024-02-10 23:59 | disposition home or self-care (01) ==
LOC: RAD 14:13
PROVIDERS: PCP Nurse Practitioner; Visit Provider Nurse Practitioner
DX: N63.24 Unspecified lump in the left breast, lower inner quadrant (principal)
CPT/HCPCS: 77061; 77065; G0279

== ENCOUNTER 2024-10-11 14:45 | Emergency (ER) | payer BC, SELFPAY ==
[2024-10-11 14:52] VITALS: BP 129/79; PULSE 82; RESP 16; TEMP 36.9; O2SAT 100; BMI 26.6
--- OUTSIDE RECORDS SUMMARY | 2024-10-11 15:09 | XMS_ITS | Patient Health Record ---
Author Organization [facility] Address [address] [facility] [address] [place] [address] Care Team Providers Care Tankman Name Role Phone Eulalia Sheridan Unavailable [phone] Allergies Allergen (clinical drug ingredient) Drug/Non Drug Allergy documented on EMR Reaction Allergy Type Onset Date Status PENICILLIN V POTASSIUM (PENICILLIN V POTASSIUM TAB Unspecified Drug Allergy 04/10/2019 Active Reason For Referral No Information Social History Social History Additional Details Category Social Info Options Details Miscellaneous: Sexually active: SEXUAL AC TIV: yes Problems Problem Type SNOMED Code ICD Code Onset Dates Problem Status W/U Status Risk Notes Problem Anxiety state (335683624) Acute anxiety (F41.9) 04/10/19 Active confirmed Anxiety Problem 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 Depression Problem Complex cyst of right ovary (932635780115 93978) Complex cyst of right ovary (N83.291) 04/10/19 Active confirmed Other ovarian cyst, right side Problem Counseling (681482501) ACP (advance care planning) (Z71.89) 04/10/19 Active confirmed Contraception counseling Plan Of Treatment No Information Medical (General) History Medical History History ICD Code SOCIAL HX: Patient has never smoked.; Patient has never used smokeless tobacco.; Passive Smoke: N; Alcohol Use: Y; Drug Use: N; Sexually Active: Y; SOCIAL HX: Patient has never smoked.; Patient has never used smokeless tobacco.; Passive Smoke: N; Alcohol Use: Y; Drug Use: N; Sexually Active: Y; yeast infections Anxiety Depression AMITRIPTYLINE HCL TABLET TOPAMAX TABLET Surgical History Surgery Date(Month/Year) appendectomy 2012 [place] 2009 breast augmentation 2017
--- OUTSIDE RECORDS SUMMARY | 2024-10-11 15:09 | XMS_ITS | Clinical Summary ---
Author Organization [facility] Address [address] [place] [address] Care Team Providers Care Office Machinery Or Equipment Installer Name Role Phone Lucy Rayo MD Primary Care Provider [phone] Allergies Active Allergy Reactions Criticality Noted Date Comments Penicillins Hives Low 02/13/2018 Medications escitalopram (LEXAPRO) 10 MG tablet 0 8 Active TRINESSA, 28, 0.18/0.215/0.25 MG-35 MCG per tablet Take 1 tablet by mouth Daily. 4 8 Active ibuprofen (ADVIL,MOTRIN) 800 MG tabletIndications :Acute mucoid otitis media of left ear,Sore throat,Fever and chills Take 1 tablet by mouth Every 8 (Eight) Hours As Needed for Mild Pain . 90 tablet 8 Active azithromycin (ZITHROMAX Z-SHANNON) 250 MG tabletIndications :Acute recurrent pansinusitis Take 2 tablets the first day, then 1 tablet daily for 4 days. 6 tablet 9 Active MethylPREDNISolon e (MEDROL, SHANNON,) 4 MG tabletIndications :Acute recurrent pansinusitis,Chantale ngitis Take as directed on package instructions. 21 tablet 9 Active amitriptyline (ELAVIL) 75 MG tablet Take 1 tablet by mouth Daily. 9 Active phenazopyridine (PYRIDIUM) 100 MG tablet Take 1 tablet by mouth 3 (Three) Times a Day As Needed for Bladder Spasms. 6 tablet 0 Active Active Problems No known active problems Family History Medical History Relation Name Comments Diabetes Father Obesity Father Obesity Mother Relation Name Status Comments Father Alive Mother Alive Social History Tobacco Use Types Packs/Day Years Used Date Smoking Tobacco: Never Smokeless Tobacco: Never Alcohol Use Standard Drinks/Week Comments Yes 0 (1 standard drink = 0.6 oz pur e alcohol) rare AUDIT-C Answer Date Recorded Frequency of Alcohol Consumption Never 03/31/2019 Average Number of Drinks Not on file 020 Frequency of Binge Drinking Not on file 03/21 Abuse Screen Answer Date Recorded Unsafe at Home or Work/School Not on file Feels Threatened by Someone? Not on file 01/2023 Does Anyone Keep You from Co ntacting Others or Doint Things Outside the Home? Not on file 12/29/2022 Physical Sign of Abuse Present Not on file 1 Housing Stability Answer Date Recorded Current Living Arrangements Not on file 12/19 Potentially Unsafe Housing Conditions Not on margarita e 12/29/2022 Family and Community Support Answer Ry e Recorded Help with Day-to-Day Activities Not on file 12/29/2022 Lonely or Isolated Not on file 12/29/2022 Employment Answer Date Recorded Do you want help finding or keeping work or a gagan b? Not on file 12/29/2022 Disabilities Answer Date Recorded Concentrating, Remembering, or Making Decisions Difficulty Not on file 12/29/2022 Doing Errands Independently Difficulty Not on fi le 12/29/2022 Education Answer Date Recorded Help with school or training? Not on file Preferred Language Not on file 12/29/2022 Comments No Sex and Gender Information Value Date Recorded Sex Assigned at Not on file Legal Sex Female 12:13 PM EDT Gender Identity Not on file Sexual Orientation Not on file Last Filed Vital Signs Vital Sign Reading Time Taken Comments Blood Pressure 115/70 03/31/2019 9:32 AM EST Pulse 120 03/31/2019 9:32 AM EST Temperature 36 C (96.8 F) 03/31/2019 9:32 AM EST Respiratory Rate 20 03/31/2019 9:32 AM EST Oxygen Saturation 98% 03/31/2019 9:32 AM EST Inhaled Oxygen Concentration - - Weight 69.4 kg (153 lb) 03/31/2019 9:32 AM EST Height 160 cm (5' 3 ) 03/31/2019 9:32 AM EST Body Mass Index 27.1 03/31/2019 9:32 AM EST Plan of Treatment Health Maintenance Due Date Last Done Comments Annual Gynecologic Pelvic an d Breast Exam 1994 TDAP/TD VACCINES (1 - Tdap) 2013 ANNUAL PHYSICAL 02/13/2018 HEPATITIS C SCREENING 02/13/2018 COVID-19 Vaccine (1 - 2023-2 5 season) 2023 INFLUENZA VACCINE 12/19/2024 Pneumococcal Vaccine 0-49 Aged Out No longer eligible based on patient's age to complete this topic Insurance [facility] [employer] Member Subscriber Plan / Payer (Ef fective 1994-Present) Name:Kendra Gates Relation to Subscriber:Child Name:BARAK HUDSON Date of :1994 (Home) Address: [address] [place] [address] [address] [id number] Payer ID:[id number] (NAIC) Group ID:[id number] Type:Not on file Address: [facility] [id number] [address] [employer] [facility] PPO Care Teams Office Machinery Or Equipment Installer Relationship Specialty Start Date End Date Lucy Rayo MD [address] [facility] [address] [place] [address] PCP - General Internal Medicine 02/04/17
--- OUTSIDE RECORDS SUMMARY | 2024-10-11 15:10 | XMS_ITS | Data Portability ---
Author Organization [facility] ([facility] [place] [facility] Address [address] [place] [address] [address] [place] [address] Care Team Providers Care [employer] Name Role Phone NISHI JOHNSON Account Manager Relief LACEY ZALDIVAR Primary Care Provider Assessment No assessment recorded. Plan of Treatment Reminders Order Date Submit Date Provider Last Modified By Organization Details Last Modified Time Details Appointments RHEUM RECHECK 2024 08:30A Giuliano JOHNSON MD Not available Not available Not available Lab sjogren antibody panel, serum 2024 025 [facility], [address] [place] [address], [address], 04/04/2024 17:53:45 C3 (compleme nt), serum or plasma 2024 025 [facility], [address] [place] [address], [address], 04/04/2024 17:53:42 C4 (compleme nt), serum or plasma 2024 025 [facility], [address] [place] [address], [id number], 04/04/2024 17:53:44 rf (rheumato id factor), serum 2024 025 [facility], [address] [place] [address], [address], 04/03/2024 11:42:00 protein electroph oresis panel, serum or plasma 2024 025 [facility], [address] [place] [address], [address], 04/05/2024 10:14:58 CBC w/ auto diff 2024 025 [facility], [address] [place] [address], [address], 04/03/2024 11:29:08 CMP, serum or plasma 2024 025 [facility], [address] [place] [address], [address], 04/03/2024 11:42:03 urinalysi s, complete 2024 025 [facility], [address] [place] [address], [address], 04/03/2024 11:47:32 protein:c reatinine ratio, urine 2024 025 [facility], [address] [place] [address], [address], 04/05/2024 16:14:18 TSH, serum, reflex free T4 2024 025 [facility], [address] [place] [address], [address], 04/03/2024 11:53:15 hepatitis (A+B+C) panel, serum 2024 025 [facility], [address] [place] [address], [address], 04/03/2024 12:00:17 magnesium , QN, serum or plasma 2024 025 [facility], [address] [place] [address], [address], 04/03/2024 11:42:02 Referral None recorded. Procedures None recorded. Surgeries None recorded. Imaging None recorded. Medication Orders meloxicam 15 mg tablet 2024 025 [facility], [address], [address], 04/03/2024 10:35:41 Patient TargetsNo targets recorded. Patient Instructions Encounter Date Encounter Id Patient Instructions Last Modified By Organization Details Last Modified Time 04/03/2024 [id number] Follow-up TBD pending results. A total of 50 minutes was spent on today's patient encounter. Time spent includes some or all of the following, both xonx-cj-edtu time and non emar-sb-duzz time, but is not limited to: Preparing to see the patient and reviewing records Discussion or coordination of car with other health chronic care nurse Reviewing records or discussing history of plan with colleagues Obtaining and/or reviewing the history Individual interpretation of results not billed by me Performing a medically appropriate examination Counseling patient and/or caregiver Ordering of unique tests, medications, referrals or procedures Documentation within the EHR Not available 04/03/2024 10:57:48 07/20/2024 [id number] Follow-up 6 months Not availa ble 07/21/2024 10:02:24 Reason for Referral None Reported. Results Created Date Observation Date Name Description Value Unit Range Abnormal Flag Note LastModifiedBy Organization Detail LastModifiedTime 04/03/1904/03/2024 COMPL ETE BLOOD COUNT white blood cells 6.7 10*3/ uL 3.8-10 .8 normal Not Available [facility] [address] [place], [address], 04/03/2024 11:29:08 04/03/19 25 04/03/2024 COMPL ETE BLOOD COUNT red blood cells 4.33 10*6/ uL 3.80-5 .20 normal Not Available [facility] [address] [place], [address], 04/03/2024 11:29:08 04/03/19 25 04/03/2024 COMPL ETE BLOOD COUNT hemoglobin 14.2 g/dL 12.0-1 6.0 normal Not Available [facility] [address] [place] [address], [address], 04/03/2024 11:29:08 04/03/19 25 04/03/2024 COMPL ETE BLOOD COUNT hematocrit 42.1 % 35.0-4 7.0 normal Not Available [facility] [address] [place] [address], [address], 04/03/2024 11:29:08 04/03/19 25 04/03/2024 COMPL ETE BLOOD COUNT MCV 97 fL 80-100 normal Not Available [facility] [address] [place] [address], [address], 04/03/2024 11:29:08 04/03/19 25 04/03/2024 COMPL ETE BLOOD COUNT MCH 33 pg 26-35 normal Not Available [facility] [address] [place] [address], [address], 04/03/2024 11:29:08 04/03/19 25 04/03/2024 COMPL ETE BLOOD COUNT MCHC 34 g/dL 32-36 normal Not Available [facility] [address] [place] [address], [address], 04/03/2024 11:29:08 04/03/19 25 04/03/2024 COMPL ETE BLOOD COUNT RDW 12.4 % 11.0-1 5.0 normal Not Available [facility] [address] [place] [address], [address], 04/03/2024 11:29:08 04/03/19 25 04/03/2024 COMPL ETE BLOOD COUNT MPV 7.7 fL 6.2-10 .5 normal Not Available [facility] [address] [place] [address], [address], 04/03/2024 11:29:08 04/03/19 25 04/03/2024 COMPL ETE BLOOD COUNT platelet count 289 10*3/ uL 150-40 0 normal Not Available [facility] [address] [place] [address], [address], 04/03/2024 11:29:08 04/03/19 25 04/03/2024 COMPL ETE BLOOD COUNT neutrophil,a bsolute 3.9 10*3/ uL 1.6-8. 4 normal Not Available [facility] [address] [place] [address], [address], 04/03/2024 11:29:08 04/03/19 25 04/03/2024 COMPL ETE BLOOD COUNT lymphocyte,a bsolute 2.0 10*3/ uL 0.4-5. 1 normal Not Available [facility] [address] [place] [address], [address], 04/03/2024 11:29:08 04/03/19 25 04/03/2024 COMPL ETE BLOOD COUNT monocyte,abs olute 0.7 10*3/ uL 0.0-1. 2 normal Not Available [facility] [address] [place] [address], [address], 04/03/2024 11:29:08 04/03/19 25 04/03/2024 COMPL ETE BLOOD COUNT eosinophil,a bsolute 0.1 10*3/ uL 0.0-0. 8 normal Not Available [facility] [address] [place] [address], [address], 04/03/2024 11:29:08 04/03/19 25 04/03/2024 COMPL ETE BLOOD COUNT basophil,abs olute 0.0 10*3/ uL 0.0-0. 3 normal Not Available [facility] [address] [place] [address], [address], 04/03/2024 11:29:08 04/03/19 25 04/03/2024 COMPL ETE BLOOD COUNT % neutrophils 58.0 % 42.0-7 8.0 normal Not Available [facility] [address] [place] [address], [address], 04/03/2024 11:29:08 04/03/19 25 04/03/2024 COMPL ETE BLOOD COUNT % lymphocytes 29.9 % 11.0-4 7.0 normal Not Available [facility] [address] [place] [address], [address], 04/03/2024 11:29:08 04/03/19 25 04/03/2024 COMPL ETE BLOOD COUNT % monocytes 10.0 % 0.0-11 .0 normal Not Available [facility] [address] [place] [address], [address], 04/03/2024 11:29:08 04/03/19 25 04/03/2024 COMPL ETE BLOOD COUNT % eosinophils 1.6 % 0.0-7. 0 normal Not Available [facility] [address] [place] [address], [address], 04/03/2024 11:29:08 04/03/19 25 04/03/2024 COMPL ETE BLOOD COUNT % basophils 0.5 % 0.0-3. 0 normal Not Available [facility] [address] [place] [address], [address], 04/03/2024 11:29:08 04/03/19 25 04/03/2024 COMPL ETE BLOOD COUNT nucleated red cells 0.0 % 0.0-0. 9 normal Not Available [facility] [address] [place] [address], [address], 04/03/2024 11:29:08 04/03/19 25 04/03/2024 COMPL ETE BLOOD COUNT nucleated RBCs, absolute 0.00 10*3/ uL not estab. normal Not Available [facility] [address] [place] [address], [address], 04/03/2024 11:29:08 04/03/19 25 04/03/2024 RF SCREE N, QUANT . rf screen, quant. <10.0 [IU]/ mL 0.0-13 .9 normal Not Available [facility] [address] [place] [address], [address], 04/03/2024 11:42:00 04/03/19 25 04/03/2024 MAGNE SIUM magnesium 2.1 mg/dL 1.6-2. 6 normal Not Available [facility] [address] [place] [address], [address], 04/03/2024 11:42:02 04/03/19 25 04/03/2024 COMP. METAB OLIC PANEL glucose 82 mg/dL 74-100 normal Not Available [facility] [address] [place] [address], [address], 04/03/2024 11:42:03 04/03/19 25 04/03/2024 COMP. METAB OLIC PANEL blood urea nitrogen 16 mg/dL 6-20 normal Not Available [facility] [address] [place] [address], [address], 04/03/2024 11:42:03 04/03/19 25 04/03/2024 COMP. METAB OLIC PANEL creatinine 0.82 mg/dL 0.50-0 .95 normal Not Available [facility] [address] [place] [address], [address], 04/03/2024 11:42:03 04/03/19 25 04/03/2024 COMP. METAB OLIC PANEL BUN/creatini ne ratio 20 (calc ) 10-20 normal Not Available [facility] [address] [place] [address], [address], 04/03/2024 11:42:03 04/03/19 25 04/03/2024 COMP. METAB OLIC PANEL sodium 139 mmol/ L 136-14 5 normal Not Available [facility] [address] [place] [address], [address], 04/03/2024 11:42:03 04/03/19 25 04/03/2024 COMP. METAB OLIC PANEL potassium 4.0 mmol/ L 3.4-5. 0 normal Not Available [facility] [address] [place] [address], [address], 04/03/2024 11:42:03 04/03/19 25 04/03/2024 COMP. METAB OLIC PANEL chloride 105 mmol/ L 98-107 normal Not Available [facility] [address] [place] [address], [address], 04/03/2024 11:42:03 04/03/19 25 04/03/2024 COMP. METAB OLIC PANEL carbon dioxide 23 mmol/ L 22-31 normal Not Available [facility] [address] [place] [address], [address], 04/03/2024 11:42:03 04/03/19 25 04/03/2024 COMP. METAB OLIC PANEL anion gap 11 (calc ) 7-25 normal Not Available [facility] [address] [place] [address], [address], 04/03/2024 11:42:03 04/03/19 25 04/03/2024 COMP. METAB OLIC PANEL calcium 9.2 mg/dL 8.6-10 .2 normal Not Available [facility] [address] [place] [address], [address], 04/03/2024 11:42:03 04/03/19 25 04/03/2024 COMP. METAB OLIC PANEL total protein 7.3 g/dL 6.4-8. 3 normal Not Available [facility] [address] [place] [address], [address], 04/03/2024 11:42:03 04/03/19 25 04/03/2024 COMP. METAB OLIC PANEL albumin 4.3 g/dL 3.5-5. 2 normal Not Available [facility] [address] [place] [address], [address], 04/03/2024 11:42:03 04/03/19 25 04/03/2024 COMP. METAB OLIC PANEL globulin 3.0 1.5-4. 5 normal Not Available [facility] [address] [place] [address], [address], 04/03/2024 11:42:03 04/03/19 25 04/03/2024 COMP. METAB OLIC PANEL albumin/glob ulin ratio 1.4 (calc ) 1.1-2. 5 normal Not Available [facility] [address] [place] [address], [address], 04/03/2024 11:42:03 04/03/19 25 04/03/2024 COMP. METAB OLIC PANEL bilirubin, total 0.2 mg/dL 0.1-1. 2 normal Not Available [facility] [address] [place] [address], [address], 04/03/2024 11:42:03 04/03/19 25 04/03/2024 COMP. METAB OLIC PANEL alkaline phosphatase 67 U/L 30-121 normal Not Available [facility] [address] [place] [address], [address], 04/03/2024 11:42:03 04/03/19 25 04/03/2024 COMP. METAB OLIC PANEL AST 20 U/L 0-32 normal Not Available [facility] [address] [place] [address], [address], 04/03/2024 11:42:03 04/03/19 25 04/03/2024 COMP. METAB OLIC PANEL ALT 22 U/L 0-33 normal Not Available [facility] [address] [place] [address], [address], 04/03/2024 11:42:03 04/03/19 25 04/03/2024 COMP. METAB OLIC PANEL GFR 99 >= 60 normal NOT E New calcu latio n for GFR (CKD- EPI 2020) is formu lated witho ut race adjus tment facto rs at the recom menda tion of the Natio nal Kidne y Found ation and Ameri can Socie ty of Nephr ology . This calcu latio n has not been valid ated in pregn ant women . For dongia maninder sigalae nts refer to https ://ana maria marie.kyle briones/willam watts s/KDO QI/gf r_cal culat orPed Not Available [facility] [address] [place] [address], [address], 04/03/2024 11:42:03 04/03/1904/03/2024 URINA LYSIS color Yellow normal Not Available [facility] [address] [place] [address], [address], 04/03/2024 11:47:32 04/03/19 25 04/03/2024 URINA LYSIS appearance Clear normal Not Available [facility] [address] [place] [address], [address], 04/03/2024 11:47:32 04/03/1904/03/2024 URINA LYSIS glucose Normal mg/dL normal normal Not Available [facility] [address] [place] [address], [address], 04/03/2024 11:47:32 04/03/19 25 04/03/2024 URINA LYSIS bilirubin Negati ve mg/dL negati ve normal Not Available [facility] [address] [place] [address], [address], 04/03/2024 11:47:32 04/03/19 25 04/03/2024 URINA LYSIS ketone Negati ve mg/dL negati ve normal Not Available [facility] [address] [place] [address], [address], 04/03/2024 11:47:32 04/03/19 25 04/03/2024 URINA LYSIS specific gravity 1.022 1.003- 1.035 normal Not Available [facility] [address] [place] [address], [address], 04/03/2024 11:47:32 04/03/19 25 04/03/2024 URINA LYSIS blood 10 /uL negati ve abnormal Not Available [facility] [address] [place] [address], [address], 04/03/2024 11:47:32 04/03/19 25 04/03/2024 URINA LYSIS pH 6 5.0 - 8.0 normal Not Available [facility] [address] [place] [address], [address], 04/03/2024 11:47:32 04/03/19 25 04/03/2024 URINA LYSIS protein Negati ve mg/dL negati ve normal Not Available [facility] [address] [place] [address], [address], 04/03/2024 11:47:32 04/03/19 25 04/03/2024 URINA LYSIS urobilinogen Normal mg/dL normal normal Not Available [facility] [address] [place] [address], [address], 04/03/2024 11:47:32 04/03/19 25 04/03/2024 URINA LYSIS nitrite Negati ve negati ve normal Not Available [facility] [address] [place] [address], [address], 04/03/2024 11:47:32 04/03/19 25 04/03/2024 URINA LYSIS leukocyte esterase 25 /uL negati ve abnormal Not Available [facility] [address] [place] [address], [address], 04/03/2024 11:47:32 04/03/19 25 04/03/2024 URINA LYSIS WBC, urine 0-5 0-5/hp f normal Not Available [facility] [address] [place] [address], [address], 04/03/2024 11:47:32 04/03/19 25 04/03/2024 URINA LYSIS RBC, urine 3-10 0-2/hp f abnormal Not Available [facility] [address] [place] [address], [address], 04/03/2024 11:47:32 04/03/19 25 04/03/2024 URINA LYSIS squamous epi. cells > 10 0-5/hp f abnormal Not Available [facility] [address] [place] [address], [address], 04/03/2024 11:47:32 04/03/19 25 04/03/2024 URINA LYSIS transitional epi. cells 0-5 0 - 5/hpf normal Not Available [facility] [address] [place] [address], [address], 04/03/2024 11:47:32 04/03/19 25 04/03/2024 URINA LYSIS bacteria 2+ /hpf none seen abnormal Not Available [facility] [address] [place] [address], [address], 04/03/2024 11:47:32 04/03/19 25 04/03/2024 TSH WITH REFLE X FT4 TSH with reflex FT4 0.518 u[IU] /mL 0.270- 4.200 normal Not Available [facility] [address] [place] [address], [address], 04/03/2024 11:53:15 04/03/19 25 04/03/2024 HEPAT ITIS PANEL hepatitis A Ab, IgM NONREA CTIVE nonrea ctive normal Not Available [facility] [address] [place] [address], [address], 04/03/2024 12:00:17 04/03/19 25 04/03/2024 HEPAT ITIS PANEL hepatitis B surface Ag NONREA CTIVE nonrea ctive normal Not Available [facility] [address] [place] [address], [address], 04/03/2024 12:00:17 04/03/19 25 04/03/2024 HEPAT ITIS PANEL hepatitis B core Ab,IgM NONREA CTIVE nonrea ctive normal Not Available [facility] [address] [place] [address], [address], 04/03/2024 12:00:17 04/03/19 25 04/03/2024 HEPAT ITIS PANEL hcab, reflex viral RNA qt NONREA CTIVE nonrea ctive normal Antib odies to HCV were not detec edmond; does not exclu de the possi bilit y of expos ure to HCV. Not Available [facility] [address] [place] [address], [address], 04/03/2024 12:00:17 04/03/1904/04/2024 C3 C3 155 mg/dL 83-193 normal Not Available [facility] [address] [place] [address], [address], 04/04/2024 17:53:42 04/03/1904/04/2024 C4 C4 24 mg/dL 15-57 normal Not Available [facility] [address] [place] [address], [address], 04/04/2024 17:53:44 04/03/1904/04/2024 SS-A/ SS-B (SJOG MOHSEN'S ) ss-A Ab <1.0 NEG ai <1.0 neg normal Not Available [facility] [address] [place] [address], [address], 04/04/2024 17:53:45 04/03/1904/04/2024 SS-A/ SS-B (SJOG MOHSEN'S ) ss-B Ab <1.0 NEG ai <1.0 neg normal Not Available [facility] [address] [place] [address], [address], 04/04/2024 17:53:45 04/03/19 25 04/05/2024 PROTE IN ELECT ROPHO RESIS , SERUM protein, total 7.1 g/dL 6.1-8. 1 normal Not Available [facility] [address] [place] [address], [address], 04/06/2024 23:42:29 04/03/19 25 04/06/2024 PROTE IN ELECT ROPHO RESIS , SERUM albumin 4.3 g/dL 3.8-4. 8 normal Not Available [facility] [address] [place] [address], [address], 04/06/2024 23:42:29 04/03/19 25 04/06/2024 PROTE IN ELECT ROPHO RESIS , SERUM uopkj-6-vlsi ulin 0.2 g/dL 0.2-0. 3 normal Not Available [facility] [address] [place] [address], [address], 04/06/2024 23:42:29 04/03/19 25 04/06/2024 PROTE IN ELECT ROPHO RESIS , SERUM ctkdk-3-dvvs ulin 0.7 g/dL 0.5-0. 9 normal Not Available [facility] [address] [place] [address], [address], 04/06/2024 23:42:29 04/03/19 25 04/06/2024 PROTE IN ELECT ROPHO RESIS , SERUM beta 1 globulin 0.5 g/dL 0.4-0. 6 normal Not Available [facility] [address] [place] [address], [address], 04/06/2024 23:42:29 04/03/19 25 04/06/2024 PROTE IN ELECT ROPHO RESIS , SERUM beta 2 globulin 0.5 g/dL 0.2-0. 5 normal Not Available [facility] [address] [place], [address], 04/06/2024 23:42:29 04/03/19 25 04/06/2024 PROTE IN ELECT ROPHO RESIS , SERUM gamma globulin 1.0 g/dL 0.8-1. 7 normal Not Available [facility] [address] [place] [address], [address], 04/06/2024 23:42:29 04/03/19 25 04/06/2024 PROTE IN ELECT ROPHO RESIS , SERUM interpretati on SEE NOTE normal No restr icted band (M-sp julieta) seen. Not Available [facility] [address] [place], [address], 04/06/2024 23:42:29 04/03/19 25 04/05/2024 UR PROTE IN/CR EAT RATIO total protein,ur,r andom 8 mg/dL normal NO KRANTHI L RANGE ESTAB LISHE D FOR RANDO M URINE . Not Available [facility] [address] [place], [address], 04/05/2024 16:14:17 04/03/19 25 04/05/2024 UR PROTE IN/CR EAT RATIO creatinine,u r,random 114 mg/dL normal NO KRANTHI L RANGE ESTAB LISHE D FOR RANDO M URINE . Not Available [facility] [address] [place], [address], 04/05/2024 16:14:17 04/03/19 25 04/05/2024 UR PROTE IN/CR EAT RATIO protein/crea t ratio 0.07 0.00-0 .19 normal Not Available [facility] [address] [place] [address], [address], 04/05/2024 16:14:17 Result Notes None recorded. Procedures Surgical History Date Name Laterality Status Provider Name and Address Organization Details Recorded Time Breast reduction completed NISHI JOHNSON MD [address] [place] [address], [address], [facility] 04/03/2024 10:16:27 Appendectomy completed NISHI JOHNSON MD [address] [place] [address], [address], [facility] 04/03/2024 10:16:32 [place] Teeth Extraction completed NSIHI JOHNSON MD [address] [place] [address], [phone], [facility] 04/03/2024 10:16:36 Imaging Results None recorded. Procedure Notes None recorded. Medical Equipment None Reported. Allergies Allergen ID Allergen Name Allergen Category Reaction Reaction Severity Criticality Documentation Date Start Date Code Code System Note Provider Name and Address Organization Details Recorded Time 071371 Product containin g penicilli n (product) medicatio n Not available Not available Not available 04/03/2024 14974 8001 SNOMED Amparo Adam [facility] 5 09:33:29 Medications Name Sig Start Date Stop Date Status Note LastModified by Organization Details LastModified Time meloxicam 15 mg tablet Take 1 tablet every day by oral route as needed. 025 active Not Available Not Available Not Avai lable Macrobid 100 mg capsule Take 1 capsule every 12 hours by oral route for 5 days. 025 active Not Available Not Available Not Avai lable Vitals Date Recorded Body weight Respiratory rate Body mass index (BMI) Body height Heart rate Oxygen saturation Oxygen saturation in Arterial blood by Pulse oximetry Systolic And Diastolic Provider Name and Address Organization Details Last Updated DateTime 5 38761.7 g 16 /min 31.1 kg/m2 157.48 cm 80 /min 98 % 98 % 122/86 mm[Hg] Amparo Adam [facility] 5 09:36:50 Date Recorded Body height Body mass index (BMI) Body weight Heart rate Oxygen saturation Oxygen saturation in Arterial blood by Pulse oximetry Systolic And Diastolic Provider Name and Address Organization Details Last Updated DateTime 5 157.48 cm 29.6 kg/m2 89630.9 6 g 99 /min 97 % 97 % 114/80 mm[Hg] Izzy Henley [facility] 5 09:22:12 Social History None recorded. Functional Status None recorded. Mental Status None recorded. Family History Relationship Description Onset Age of this Age Resolved Age Notes LastModified by Organization Details LastModified Time Maternal Grandmother Rheumatoid arthritis Not available 2024 10:14:51 Maternal Grandmother Heart disease Not available 2024 10:14:57 Maternal Grandmother Chronic obstructive pulmonary disease Not available 2024 10:15:13 Maternal Grandmother Congestive heart failure Not available 2024 10:15:19 Mother Pulmonary eosinophilia Not available 10:15:38 Mother Arthritis Not available 04/03/2024 10:15:56 Mother Depressive disorder Not available 2024 10:16:02 Father Seizure Not available 10:15:43 Maternal Grandfather Malignant neoplasm of lung Not available 2024 10:16:17 Maternal Grandfather Malignant neoplasm of prostate Not available 2024 10:16:14 Medical History No medical history recorded. Gynecological HistoryNo gynecological history recorded. 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 Lower clinical suspicion for autoimmune inflammato ry arthritis. With vitamin D and B12 being on low end of normal, I have recommende d pt to start supplement ation for these as these deficienci es can cause arthralgia and fatigue. Will plan to repeat in a few months.Has tried Aleve with some improvemen t.Will prescribe different NSAID.Advi sed pt to monitor joint swelling. Fatigue [id number] R53.83 Non-specif ic. In the setting of low vitamin B12 and vitamin D.Will add on magnesium today.Will check labs related to Sjogren's given dry mouth, +JIMMY Anti-nucle ar factor detected [id number] R76.8 +JIMMY 1:160 nuclear, dense fine speckled. Discussed nature of JIMMY testing. ACR handout on positive JIMMY given.+dry mouth. Will check labs related to Sjogren's. Discussed that JIMMY can be seen in the setting of family history of autoimmune disease (RA in maternal grandmothe r).Overall , her pattern is more noted in normal individual s, more rare for autoimmune etiology. Xerostomia [id number] R68. 2 [id number] NISHI JOHNSON MD RHEUMATOL [facility] [address] [place] [address] 07/20/2024 09:03:59 07/22/2024 04:06:56 Polyarthropathy [id number] M13.0 Symptoms are overall non-inflam matory in nature. Lower clinical suspicion for autoimmune inflammato ry arthritis. She is taking vitamin D and B12 supplement ation.Has tried Aleve with some improvemen t.Has Meloxicam 15 mg on hand to use PRN. senior living current use of non-steroidal anti-inflammatory drug [id number] Z51.81 Z79.1 No side effects with Meloxicam use. Taking PRN, good on refills. Will plan for CMP at next visit. Health Concerns Section Related Observation LastModified by Organization Detai ls LastModified Time None Recorded Concern Status LastModified by Organization Details LastModified Time None Recorded Advance Directives Directive None Recorded Payers Insurance Date Sequence Insurance Name Policy Number Policy Barker Covered Member ID Barker Member ID Guarantor Name 07/30/2024 PAYMENT PLAN Kendra Gates 07/19/2024 1 [place] [id number] Kendra Gates [id number] Kendra Gates Notes Date Note Type Note Provider Name and Address Organization Details Recorded Time 04/03/2024 text/html ROS as noted in the HPI Referred by PCP for evaluation of positive JIMMY.Was experiencing severe fatigue and joint pains in the past 6 months.Ankles, hips, knees are worse at the end of the day. Hands have started to bother her. Has had stiffness in hands.Has noted swelling in hands; not daily. Will get tight with activity.Wrists pop a lot.Left elbow has been bothering frequently. Feels like fire.Shoulders are usually ok.Left knee hurts off and on during the day, pops frequently and in medial area.Toes are ok.Has tried Aleve twice daily, sometimes helpful.Works outside.Reports dry mouth. Stays hydrated.Denies any rash, oral ulcers, alopecia, pleuritic pain or shortness of breath, photosensitivity, dry eyes, Raynaud's phenomenon.Denies blood in urine or stool. Reports increased bowel movements.No history of thyroid disease.No history of DVT/PE.No history of miscarriages.Labs noted vitamin B12 and vitamin D to be low end of normal. Iron studies were normal. Folate was normal. No anemia noted. NISHI JOHNSON MD [address] [place] [address], [phone], [facility] 04/03/2024 11:00:15 07/20/2024 text/html ROS as noted in the HPI Last seen 04/03/24. Since last visit, Meloxicam was prescribed. Reports overall joint pains in hips, knees, ankles, hands were generally better with not working as much in the winter season. Meloxicam was helpful on PRN basis. Denies particular morning stiffness. Denies rashes, fevers, infections, chest pain, blood in urine or stool, shortness of breath abdominal pain. From initial HPI 04/03/24:Referred by PCP for evaluation of positive JIMMY.Was experiencing severe fatigue and joint pains in the past 6 months.Ankles, hips, knees are worse at the end of the day. Hands have started to bother her. Has had stiffness in hands.Has noted swelling in hands; not daily. Will get tight with activity.Wrists pop a lot.Left elbow has been bothering frequently. Feels like fire.Shoulders are usually ok.Left knee hurts off and on during the day, pops frequently and in medial area.Toes are ok.Has tried Aleve twice daily, sometimes helpful.Works outside.Reports dry mouth. Stays hydrated.Denies any rash, oral ulcers, alopecia, pleuritic pain or shortness of breath, photosensitivity, dry eyes, Raynaud's phenomenon.Denies blood in urine or stool. Reports increased bowel movements.No history of thyroid disease.No history of DVT/PE.No history of miscarriages.Labs noted vitamin B12 and vitamin D to be low end of normal. Iron studies were normal. Folate was normal. No anemia noted. NISHI JOHNSON MD [address] [place] [address], [phone], [facility] 07/21/2024 10:02:41 OBGyn Episode No OBEpisode recorded.
[2024-10-11] MEDS: 0.9 % SODIUM CHLORIDE 1000ML 500 ML 999 ML IV (15:16)
--- NOTE | 2024-10-11 15:19 | ED_ITS ---
<Statement entered by Mau Cerna MD - 10/12/24 09:52> I was consulted by the MARIA GUADALUPE, and we discussed the complexity of problems being addressed. I approved the treatment and management plan for this patient's care in the emergency department, thus performing a substantial portion of the medical decision making. Mau Cerna MD Discharge Plan Disposition Patient Disposition: Home, Self-Care Condition: Good Prescriptions Prescriptions: No Action norethindrone-e.estradiol-iron 1 EACH tablet 1 tab PO ONCE azithromycin [Zithromax Z-Alireza] 250 mg tablet See Rx Instructions .ROUTE .COMPLEX 5 Days Qty: 6 0RF Rx Instructions: For 250 mg dose pack: take 500 mg today (day 1), then 250 mg for 4 days (days 2-5) methylprednisolone [Medrol (Alireza)] 4 mg tablets,dose pack See Rx Instructions .Route .COMPLEX 6 Days Qty: 21 0RF Rx Instructions: taper pack; Referrals Follow up/Referrals: Za Roberts APRN [Primary Care Provider, Medical] - See instructions Activity Restrictions/Add. Instructions Additional Instructions/Restrictions: As we discussed I would avoid heat related exposure is much as possible. If you do have to work in the heat I recommend staying hydrated with electrolyte water and/or sports drink instead of just plain water. If you have any persistent new or worsening signs or symptoms please follow-up with your PCP return to the ER as needed. Clinical Impressions Clinical Impression: Heat exhaustion Qualifiers: Encounter type: initial encounter Qualified Code(s): T67.5XXA - Heat exhaustion, unspecified, initial encounter Stand Alone Forms Stand Alone Forms: Work/School Release Instructions Patient Instructions: DI for Heat Exhaustion and Heat Stroke, DI for Muscle Weakness Print Language Print Language: Anguillan Discharge ED Provider: Mau Cerna General Adult HPI General Chief complaint: Weakness Stated complaint: high BP 150/100 Time Seen by Provider: 10/11/24 15:19 Mode of Arrival: Ambulatory Source of Information: Patient Description of Symptoms (Recalled from ER Triage Doc. 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 History of Present Illness HPI narrative: Patient presents for evaluation of weakness. Patient works in the [employer] and spent all day yesterday working. She tries to stay hydrated but at the end of the day she felt like she got overheated. She did not stop sweating. When she woke up this morning she still feels weak but denies any chest pain shortness of breath fever chills hemoptysis hematochezia melena nausea vomiting diarrhea or muscle soreness. Related Data Home Medications ?Medication ?Instructions ?Recorded ?Confirmed norethindrone 1 mg-ethinyl 1 tab PO ONCE control 10/26/21 12/14/22 estradiol 20 mcg (24)-iron 75 mg (4) tablet Previous Rx's ?Medication ?Instructions ?Recorded azithromycin 250 mg tablet See Rx Instructions PO .COM PLEX 5 12/14/22 (Zithromax Z-Alireza) days #6 tabs methylprednisolone 4 mg tablets in See Rx Instructions .Route 12/14/22 a dose pack (Medrol (Alireza)) .COMPLEX 6 days #21 tabs Allergies Allergy/AdvReac Type Severity Reaction Status Date / Time amoxicillin Allergy Verified 10/26/21 19:15 Penicillins Allergy Verified 10/26/21 19:15 [facility] Disclaimer: The information contained in this section may have been updated after the patient was seen, as this information can be updated by other users. Medical History (Updated 10/11/24 @ 16:10 by BECK Chan) No significant past medical history Family History (Updated 01/19/22 @ 07:31 by Griselda Kwong RN) Other No significant family history Social History (Updated 01/19/22 @ 07:31 by Griselda Kwong RN) Smoking Status: Never smoker second hand exposure: Yes alcohol intake: never substance use type: marijuana current occupational status: other Travel in the last 8 weeks?: None household members: spouse housing: house current occupation: [employer] current occupational exposures/hazards: No caffeine: No Have you lived/traveled outside [place] in past 30 days?: No Contact w/someone who lives/traveled outside US past 30 days?: No Exposure to someone with infectious disease in past 14 days?: No Do you have a fever (greater than 100.4 F or 38 C)?: No Have you tested positive for COVID-19?: No Exposed to someone with COVID-19 in past 14 days?: No Do you have a sore throat?: No Do you have a cough?: No Do you have any weakness?: No Do you have any diarrhea?: No Are you experiencing any unusual bleeding?: No Do you have any muscle aches/pain?: No Do you have any abdominal pain?: No Are you experiencing loss of taste or smell?: No Other Medical History Have you received the Flu Vaccine for this season: No Have you received the Pneumonia Vaccine: No ROS Obtained: Yes Systems reviewed as appropriate & no additional complaints except as documented Physical Exam General General appearance: alert and in no apparent distress Respiratory Respiratory exam: Present normal lung sounds bilaterally Cardiovascular Cardiovascular exam: Present regular rate Neurological Exam Neurological exam: Present alert and oriented X3 Medical Decision Making Medical Records Medical records reviewed: Yes I reviewed the patient's medical records. Screening: Per USPSTF and CDC recommendations, given the prevalence of disease in our region, it is our hospital?s policy to screen for HIV and viral Hepatitis for all patients aged 18 and over and those with ongoing risk factors. Jose Roberto Inquiry Pt receiving controlled substance: No Vital Signs: 10/11/24 14:52 10/11/24 15:20 10/11/24 16:01 Temperature 98.4 F Temperature Source Oral Pulse Rate 88 87 Pulse Rate [Right] 82 Respiratory Rate 16 19 17 Blood Pressure 120/77 123/78 Blood Pressure [Right Arm] 129/79 Blood Pressure Mean [Right Arm] 95 Blood Pressure Source Blood Pressure Position 02 Sat by Pulse Oximetry 100 100 100 Oxygen Delivery Method Room Air Room Air Room Air 10/11/24 16:15 Temperature 98.7 F Temperature Source Oral Pulse Rate 88 Pulse Rate [Right] Respiratory Rate 19 Blood Pressure 123/78 Blood Pressure [Right Arm] Blood Pressure Mean [Right Arm] Blood Pressure Source Automatic Cuff Blood Pressure Position Supine 02 Sat by Pulse Oximetry Oxygen Delivery Method Room Air Lab Data Lab results reviewed: Yes I reviewed the patient's lab results. Lab Results 10/11/24 14:58: WBC 9.3, RBC 4.02 L, Hgb 13.3, Hct 38.7, MCV 96.3, MCH 33.1 H, MCHC 34.4, RDW 12.0, Plt Count 277, MPV 10.0, Neut % (Auto) 54.3, Lymph % (Auto) 32.9, [place] % (Auto) 10.5 H, Eos % (Auto) 1.9, Baso % (Auto) 0.3, Neut # (Auto) 5.0, Lymph # (Auto) 3.1, [place] # (Auto) 1.0, Eos # (Auto) 0.2, Baso # (Auto) 0.0, ESR 12, Sodium 133 L, Potassium 4.3, Chloride 104, Carbon Dioxide 23, Anion Gap 10.3, BUN 17, Creatinine 0.70, Estimated Creat Clear 130, Estimated GFR 98, Est GFR ( Amer) 119, Glucose 87, Calcium 9.1, Magnesium 1.9, Total Bilirubin 0.7, AST 40 H, ALT 21, Alkaline Phosphatase 50, Total Creatine Kinase 110, C- Reactive Protein 8.8 H, Total Protein 7.7, Albumin 4.5, Globulin 3.2, Albumin/Globulin Ratio 1.4, Serum HCG, Qual Negative, HCV Ab RAYSHAWN w/Rflx PCR Qn Negative, HIV Ag/Ab Combo Qual Negative 10/11/24 15:27: Lactate 0.7 10/11/24 14:58 10/11/24 14:58 Orders (Tests/Meds): ED MEDICATIONS Discontinued Medications Generic Name Dose Route Start Last Admin Trade Name Freq PRN Reason Stop Dose Admin Sodium Chloride 500 mls @ 999 mls/hr 10/11/24 15:14 10/11/24 15:16 Sod Chlor 0.9% 1000ml Bag IV 10/11/24 15:44 999 mls/hr .Q31M ONE Administration ORDERS Category Date Time Status CBC w/Auto Diff [Complete Blood Count Auto Diff] Stat Lab 10/11/24 14:58 Completed CK [Creatine Kinase] Stat Lab 10/11/24 14:58 Completed CMP [Comprehensive Metabolic Panel] Stat Lab 10/11/24 14:58 Completed CRP [C-Reactive Protein] Stat Lab 10/11/24 14:58 Completed ESR [Erythrocyte Sedimentation Rate] Stat Lab 10/11/24 14:58 Completed HCG Qualitative, Serum Stat Lab 10/11/24 14:58 Completed HIV Combo Stat Lab 10/11/24 14:58 Completed Hepatitis C Ab Qual. W/ RFX Stat Lab 10/11/24 14:58 Completed Lactic Acid Stat Lab 10/11/24 15:27 Completed Magnesium Stat Lab 10/11/24 14:58 Completed Medical Decision Narrative: In summary patient is a 29-year-old female who presents to the emergency department for evaluation of weakness after heat exposure. Patient is currently hemodynamically stable with a blood pressure 129/79 pulse 82 respiratory rate 16 O2 sats 100% on room air upon arrival, patient is afebrile at 98.4. Physical exam is unremarkable nonfocal including clear breath sounds no focal neurologic deficits patient is amatory in the ER breath sounds clear and equal bilaterally to the bases muscle strength 5 out of 5 in all 4 extremities.. Differential diagnosis includes dehydration versus heat exhaustion versus electrolyte abnormality. Initial workup will be conducted with hematologic labs. Initial interventions include crystalloid bolus. Initial workup reviewed by me and patient has a slightly low sodium at 133 and the remainder of her hematologic labs are nonactionable.. Upon repeat evaluation patient reported significant improvement after liter bolus.. Given this patient is appropriate for discharge with recommendations to avoid heat exposure for the next day or so rehydrate and should she have any persistent new or worsening signs or symptoms follow-up with her PCP or return to the ER as needed. Critical Care Critical Care Time Critical Care Time: No
[2024-10-11 15:20] VITALS: BP 120/77; PULSE 88; RESP 19; O2SAT 100
[2024-10-11 15:25] LABS: Hematocrit 38.7 % (37.0-47.0); Hemoglobin 13.3 g/dL (12.2-16.2); Immature Granulocytes % 0.1 %; Mean Corpuscular HGB Conc 34.4 g/dL (31.8-35.4); Mean Corpuscular Hemoglobin 33.1 pg (27.0-31.2); Mean Corpuscular Volume 96.3 fl (81-99); Nucleated Red Blood Cells % 0 %; Platelet Count 277 K/mm3 (142-424); Red Blood Count 4.02 M/mm3 (4.20-5.40); Red Cell Distribution Width-SD 42.3 fL; White Blood Count 9.3 K/mm3 (4.8-10.8)
[2024-10-11 15:30] LABS: Albumin Level 4.5 g/dl (3.5-5.0); Chloride 104 mmol/L (98-107)
[2024-10-11 15:31] LABS: Potassium 4.3 mmoL/L (3.5-5.1); Sodium 133 mmol/L (136-145)
[2024-10-11 15:33] LABS: Alanine Aminotransferase 21 U/L (12-78); Anion Gap 10.3 mEq/L (5-15); Aspartate Amino Transferase 40 U/L (14-36); Blood Urea Nitrogen 17 mg/dl (7-17); Carbon Dioxide 23 mmol/L (22.0-30.0); Creatinine Clearance Estimated 130 mL/min (50-200); Creatinine,Serum 0.70 mg/dl (0.52-1.04); Estimated Glomerular Filt Rate 98 ml/min (>60); GFR (African American) 119 ML/MIN (>60)
[2024-10-11 15:34] LABS: Albumin/Globulin Ratio 1.4 (1.1-1.8); Alkaline Phosphatase 50 U/L (38-126); Bilirubin,Total 0.7 mg/dl (0.2-1.3); Calcium 9.1 mg/dl (8.4-10.2); Creatine Kinase 110 U/L (30-135); Globulin 3.2 g/dL (1.3-3.2); Glucose 87 mg/dl (74-100); Magnesium 1.9 mg/dl (1.6-2.3); Total Protein,Serum 7.7 g/dl (6.3-8.2)
[2024-10-11 15:39] LABS: C-Reactive Protein 8.8 mg/L (0-4)
[2024-10-11 16:01] VITALS: BP 123/78; PULSE 87; RESP 17; O2SAT 100
[2024-10-11 16:04] LABS: HCG Qualitative, Serum Negative (Negative)
[2024-10-11 16:15] VITALS: BP 123/78; PULSE 88; RESP 19; TEMP 37.1; O2SAT 100
[2024-10-11 16:52] LABS: Hepatitis C Ab Qual. W/ RFX NEGATIVE (Negative)
== END 2024-10-11 16:18 | disposition home or self-care (01) ==
PROVIDERS: Physician Assistant; Emergency Provider Emergency Medicine; PCP Nurse Practitioner
DX: T67.5XXA Heat exhaustion, unspecified, initial encounter (principal); E87.1 Hypo-osmolality and hyponatremia
CPT/HCPCS: 80053; 82550; 83605; 83735; 84703; 85025; 85651; 86140; 86803; 87389; 99283; J7030